=== PATIENT | female | born 1970 | race Two or more races ===

== ENCOUNTER 2021-08-14 14:35 | Emergency (ER) | payer OTHER ==
[~2021-08-14] VITALS: Ht 165.1 cm; Wt 127.0 kg
[2021-08-14] MEDS ORDERED: DEXTROSE (50%) 50ML SYRG IV PRN (14:45)
[2021-08-14] MEDS ORDERED: InsuLIN R (HUMAN) 100 UNITS in SODIUM CHL 0.9% 99 ML IV SCH (14:45)
[2021-08-14] MEDS ORDERED: INSULIN LANTUS (GLARGINE) 1 /0.01ml (100units/ml) SC ONE (14:45)
[2021-08-14] MEDS ORDERED: SODIUM CHLORIDE 0.9% 1,000 ML IV SCH ×3 (14:45→20:45)
[2021-08-14 14:53] VITALS: BP 122/81
[2021-08-14] MEDS ORDERED: ACCU-CHEK COMFORT CURVE STRIP VI SCH (15:00)
[2021-08-14 15:10] LABS: Basophils # (auto) 0.1 10 ^3/uL (0-0.2); Basophils % (auto) 1.2 % (0.0-2.0); Eosinophils # (auto) 0 10 ^3/uL (0-0.8); Eosinophils % (auto) 0.6 % (0.0-7.0); Hematocrit 42.5 % (36.0-46.0); Hemoglobin 13.5 g/dL (12.2-16.2); Lymphocytes # (auto) 1.7 10 ^3/uL (0.4-5.4); Lymphocytes % (auto) 33.5 % (10.0-50.0); Mean Corpuscular Hemoglobin 25.9 pg (28.0-32.0); Mean Corpuscular Hgb Conc. 31.9 g/dL (32.0-36.0); Mean Corpuscular Volume 81.2 fL (80.0-100.0); Monocytes # (auto) 0.4 10 ^3/uL (0-1.3); Monocytes % (auto) 8.4 % (0.0-12.0); Neutrophils # (auto) 2.9 10 ^3/uL (1.6-8.6); Neutrophils % (auto) 56.3 % (37.0-80.0); Red Blood Cells 5.23 10^6/uL (4.0-5.20); Red Cell Distribution Width 13.4 % (11.8-14.3); White Blood Cell 5.2 10^3/uL (4.4-10.8)
[2021-08-14 15:31] LABS: Calcium 9.5 mg/dL (8.5-10.1); Magnesium 2.8 mg/dL (1.6-2.6); Potassium 5.3 mmol/L (3.5-5.1)
[2021-08-14 15:40] LABS: Phosphorus 4.1 mg/dL (2.5-4.90)
[2021-08-14] MEDS ORDERED: SODIUM ZIRCONIUM CYCL 10 GM PAK PO ONE (16:45)
[2021-08-14] MEDS ORDERED: FUROSEMIDE 20 MG/2 ML VIAL IV ONE (16:45)
[2021-08-14] MEDS ORDERED: CALCIUM GLUC 1,000mg/50ml-NS 50 ML IV ONE (16:45)
[2021-08-14] MEDS ORDERED: SODIUM BICARBONATE 8.4% INJ 50ML SYRINGE IV ONE (16:45)
[2021-08-14] MEDS ORDERED: InsuLIN REG 1unit/0.01ml Soln (100units/ml) IV ONE (16:45)
[2021-08-14] MEDS ORDERED: ALBUTEROL SULF 2.5 MG/0.5ML(0.5%) NEB SOLN NEB ONE (16:45)
[2021-08-14 17:43] LABS: Urine Bacteria FEW /hpf (None Seen); Urine Blood 2+ /uL (Negative); Urine Specific Gravity 1.019 (1.001-1.035); Urine WBC 4 /hpf (0 - 5)
[2021-08-15] MEDS ORDERED: INSULIN LANTUS (GLARGINE) 1 /0.01ml (100units/ml) SC SCH (10:00)
== END 2021-08-14 19:30 | disposition left against medical advice (07) ==
LOC: EDBD 14:35 → ER 14:35
DX: E11.65 Type 2 diabetes mellitus with hyperglycemia (principal)
CPT/HCPCS: 36415; 36600; 80048; 81001; 82010; 82805; 83735; 83930; 84100; 85025; 93005; 94640; 99284; J1815

== ENCOUNTER 2023-10-04 07:58 | Emergency (ER) | payer SELFPAY ==
[~2023-10-04] VITALS: Ht 167.6 cm; Wt 113.3 kg
[2023-10-04 09:00] VITALS: PULSE 108; RESP 22; O2SAT 99
[2023-10-04] MEDS ORDERED: HYDROcodone-ACET 5/325MG TAB PO ONE (09:15)
[2023-10-04] MEDS ORDERED: ALBUTEROL MEDNEB 2.5 mg/3ml NEB NEB ONE (09:30)
[2023-10-04] MEDS ORDERED: methylPREDNISolone SOD SUCC 125 MG/2 ML VL IV ONE (09:30)
[2023-10-04] MEDS ORDERED: MORPHINE SULFATE INJ 2 MG/ml SYRG IV ONE (09:30)
[2023-10-04] MEDS ORDERED: ONDANSETRON HCL 4 MG/2 ML VIAL IV ONE (09:30)
[2023-10-04] MEDS ORDERED: IPRATROPIUM BROM 0.5 MG/2.5ML INH SOL NEB ONE (09:30)
[2023-10-04 09:34] LABS: Basophils # (auto) 0 10 ^3/uL (0-0.2); Basophils % (auto) 0.6 % (0.0-2.0); Eosinophils # (auto) 0.1 10 ^3/uL (0-0.8); Eosinophils % (auto) 1.9 % (0.0-7.0); Hematocrit 34.1 % (36.0-46.0); Hemoglobin 10.9 g/dL (12.2-16.2); Lymphocytes # (auto) 0.7 10 ^3/uL (0.4-5.4); Lymphocytes % (auto) 11.3 % (10.0-50.0); Mean Corpuscular Hemoglobin 25.8 pg (28.0-32.0); Mean Corpuscular Hgb Conc. 32.1 g/dL (32.0-36.0); Mean Corpuscular Volume 80.4 fL (80.0-100.0); Monocytes # (auto) 0.7 10 ^3/uL (0-1.3); Monocytes % (auto) 11.8 % (0.0-12.0); Neutrophils # (auto) 4.6 10 ^3/uL (1.6-8.6); Neutrophils % (auto) 74.4 % (37.0-80.0); Nucleated Red Blood Cells % 0.1 %; Red Blood Cells 4.24 10^6/uL (4.0-5.20); Red Cell Distribution Width 13.5 % (11.8-14.3); White Blood Cell 6.2 10^3/uL (4.4-10.8)
[2023-10-04] MEDS ORDERED: AZITHROMYCIN 500MG/ 250ML 250 ML IV ONE (10:15)
[2023-10-04] MEDS ORDERED: cefTRIAXone 1GM/50ML D5W 50 ML IV ONE (10:15)
[2023-10-04 10:43] LABS: Alanine Aminotransferase 43 U/L (7-40); Albumin 3.8 g/dL (3.2-4.8); Alkaline Phosphatase 188 U/L (46-116); Anion Gap 8 (5-15); Aspartate Aminotransferase 53 U/L (13-40); BUN/Creatinine Ratio 13.8 (10.0-20.0); Bilirubin, Total 0.4 mg/dL (0.2-1.0); Blood Urea Nitrogen 27 mg/dL (9-23); Calcium 8.9 mg/dL (8.5-10.1); Carbon Dioxide 27 mmol/L (20-30); Chloride 104 mmol/L (98-107); Glucose 87 mg/dL (74-106); Potassium 4.4 mmol/L (3.5-5.1); Sodium 139 mmol/L (136-145); Total Protein 6.6 g/dL (5.7-8.2)
[2023-10-04 10:46] LABS: Urine Bacteria FEW /hpf (None Seen); Urine Blood 2+ /uL (Negative); Urine Clarity HAZY (Clear); Urine Color Colorless (Yellow); Urine Protein, UAD 3+ (Negative); Urine Specific Gravity 1.014 (1.001-1.035); Urine Urobilinogen Normal (Negative); Urine WBC 15 /hpf (0 - 5); Urine pH 6.5 (5.0-8.0)
[2023-10-04] MEDS ORDERED: VANCOMYCIN PER PHARMACY 0 MG IV SCH (13:00)
[2023-10-04] MEDS ORDERED: DOCUSATE SOD 100 MG CAP PO PRN (13:00)
[2023-10-04] MEDS ORDERED: ONDANSETRON HCL 4 MG/2 ML VIAL IV PRN (13:00)
[2023-10-04] MEDS ORDERED: MORPHINE SULFATE INJ 2 MG/ml SYRG IV PRN (13:00)
[2023-10-04] MEDS ORDERED: ACETAMINOPHEN 650 mg PER 20.3 mL UD PO PRN (13:30)
[2023-10-04] MEDS ORDERED: DEXTROSE (50%) 50ML SYRG IV PRN (13:30)
[2023-10-04 14:00] VITALS: BP 113/76; PULSE 90; RESP 13; TEMP 100.8; O2SAT 92
[2023-10-04] MEDS ORDERED: CEFEPIME 2GM/50ML NS 50 ML IV SCH (14:00)
[2023-10-04 14:11] LABS: INR 1.05 (0.9-1.15)
[2023-10-04 14:42] LABS: Base Excess 0.2 mmol/L (-2.0-2.0)
[2023-10-04] MEDS: VANCOMYCIN 1GM/250ML 250 ML IV SCH (16:20)
[2023-10-04] MEDS: ACCU-CHEK COMFORT CURVE STRIP VI SCH ×2 (17:20→22:00)
[2023-10-04] MEDS: InsuLIN REG 1unit/0.01ml Soln (100units/ml) SC SCH ×2 (17:25→22:00)
[2023-10-04] MEDS: FUROSEMIDE 20 MG/2 ML VIAL IV SCH (18:11)
[2023-10-04 18:51] LABS: COVID19 ANTIGEN SOFIA FIA NEGATIVE (NEGATIVE)
[2023-10-04 18:53] LABS: Rapid Influenza B Negative (Negative)
[2023-10-04 18:54] LABS: Rapid Influenza A Positive (Negative)
[2023-10-04 19:44] LABS: Creatinine, Urine 74.01 mg/dL (30.0-125.0)
[2023-10-04 19:45] VITALS: PULSE 83; RESP 22; O2SAT 98
[2023-10-04 19:46] VITALS: PULSE 88; RESP 20; O2SAT 100; O2SAT 99
[2023-10-04] MEDS: IPRATROPIUM BROM 0.5 MG/2.5ML INH SOL NEB PRN (19:55)
[2023-10-04] MEDS: ALBUTEROL MEDNEB 2.5 mg/3ml NEB NEB PRN (19:55)
[2023-10-04 19:56] VITALS: PULSE 82; RESP 21; O2SAT 99
[2023-10-04 20:43] LABS: Triglycerides 126 mg/dL (< 150)
[2023-10-04 20:44] LABS: LDL Cholesterol 155 mg/dL (< 100)
[2023-10-04 20:45] LABS: Cholesterol 217 mg/dL (< 200); HDL Cholesterol 47 mg/dL (40-59)
[2023-10-04] MEDS: APIXABAN 5 MG TAB PO SCH (22:00)
[2023-10-04] MEDS: ATORVASTATIN 20 MG TAB PO SCH (22:00)
[2023-10-04] MEDS ORDERED: OSELTAMIVIR 75 MG CAP PO ONE (22:00)
[2023-10-04] MEDS: CEFEPIME 2GM/50ML NS 50 ML IV SCH (22:00)
[2023-10-04] MEDS: METOPROLOL TARTRATE 25 MG TAB PO SCH (22:00)
[2023-10-04] MEDS ORDERED: APIXABAN 5 MG TAB PO ONE (23:45)
[2023-10-04] MEDS ORDERED: METOPROLOL TARTRATE 25 MG TAB PO ONE (23:45)
[2023-10-04] MEDS ORDERED: ATORVASTATIN 20 MG TAB PO ONE (23:45)
[2023-10-04] MEDS ORDERED: InsuLIN REG 1unit/0.01ml Soln (100units/ml) SC ONE (23:45)
[2023-10-04] MEDS ORDERED: CEFEPIME 2GM/50ML NS 50 ML IV ONE (23:45)
[2023-10-05] VITALS (7 sets, daily range): PULSE 70–81; RESP 13–17; O2SAT 92–99
[2023-10-05] MEDS ORDERED: IPRATROPIUM BROM 0.5 MG/2.5ML INH SOL ONE
[2023-10-05] MEDS ORDERED: ALBUTEROL MEDNEB 2.5 mg/3ml NEB ONE
[2023-10-05] MEDS: IPRATROPIUM BROM 0.5 MG/2.5ML INH SOL NEB PRN (00:06)
[2023-10-05] MEDS: ALBUTEROL MEDNEB 2.5 mg/3ml NEB NEB PRN (00:06)
[2023-10-05] MEDS: VANCOMYCIN 1GM/250ML 250 ML IV SCH ×2 (03:00→15:43)
[2023-10-05 04:57] LABS: Basophils # (auto) 0 10 ^3/uL (0-0.2); Basophils % (auto) 0.2 % (0.0-2.0); Eosinophils # (auto) 0 10 ^3/uL (0-0.8)
[2023-10-05 04:59] LABS: Hematocrit 32.4 % (36.0-46.0); Lymphocytes % (auto) 15.4 % (10.0-50.0); Mean Corpuscular Hemoglobin 25.6 pg (28.0-32.0); Mean Corpuscular Volume 82.7 fL (80.0-100.0); Monocytes # (auto) 0.7 10 ^3/uL (0-1.3); Monocytes % (auto) 11.8 % (0.0-12.0); Neutrophils # (auto) 4.5 10 ^3/uL (1.6-8.6); Neutrophils % (auto) 72.6 % (37.0-80.0); Nucleated Red Blood Cells % 0.2 %; Red Blood Cells 3.91 10^6/uL (4.0-5.20); Red Cell Distribution Width 13.8 % (11.8-14.3); White Blood Cell 6.2 10^3/uL (4.4-10.8)
[2023-10-05 06:26] LABS: Alanine Aminotransferase 30 U/L (7-40); Albumin 3.6 g/dL (3.2-4.8); Alkaline Phosphatase 164 U/L (46-116); Anion Gap 8 (5-15); Aspartate Aminotransferase 47 U/L (13-40); BUN/Creatinine Ratio 9.4 (10.0-20.0); Bilirubin, Total 0.3 mg/dL (0.2-1.0); Blood Urea Nitrogen 25 mg/dL (9-23); Calcium 8.5 mg/dL (8.7-10.4); Carbon Dioxide 22 mmol/L (20-30); Chloride 101 mmol/L (98-107); Glucose 339 mg/dL (74-106); Potassium 5.2 mmol/L (3.5-5.1); Total Protein 6.7 g/dL (5.7-8.2)
[2023-10-05 06:39] LABS: Sodium 131 mmol/L (136-145)
[2023-10-05] MEDS: CEFEPIME 2GM/50ML NS 50 ML IV SCH ×2 (10:29→23:13)
[2023-10-05] MEDS: CLOPIDOGREL BISULFATE 75 MG TAB PO SCH (10:29)
[2023-10-05] MEDS: APIXABAN 5 MG TAB PO SCH ×2 (10:29→23:11)
[2023-10-05] MEDS: InsuLIN REG 1unit/0.01ml Soln (100units/ml) SC SCH ×4 (10:29→23:10)
[2023-10-05] MEDS: METOPROLOL TARTRATE 25 MG TAB PO SCH ×2 (10:29→23:13)
[2023-10-05] MEDS: ACCU-CHEK COMFORT CURVE STRIP VI SCH ×4 (10:30→23:14)
[2023-10-05] MEDS: FUROSEMIDE 20 MG/2 ML VIAL IV SCH ×2 (10:30→18:11)
[2023-10-05] MEDS: OSELTAMIVIR 30 MG CAP PO SCH ×2 (10:31→23:29)
[2023-10-05] MEDS: ATORVASTATIN 20 MG TAB PO SCH (23:11)
[2023-10-06] MEDS ORDERED: ZOLPIDEM TARTRATE 5 MG TAB PO ONE (01:15)
[2023-10-06] MEDS: VANCOMYCIN 1GM/250ML 250 ML IV SCH (04:50)
[2023-10-06] MEDS: ACCU-CHEK COMFORT CURVE STRIP VI SCH ×2 (06:58→11:38)
[2023-10-06] MEDS: InsuLIN REG 1unit/0.01ml Soln (100units/ml) SC SCH ×2 (07:03→11:41)
[2023-10-06 07:50] VITALS: O2SAT 100
[2023-10-06 07:52] VITALS: PULSE 77; RESP 20; O2SAT 94
[2023-10-06] MEDS: FUROSEMIDE 20 MG/2 ML VIAL IV SCH (08:27)
[2023-10-06 08:52] LABS: Basophils # (auto) 0 10 ^3/uL (0-0.2); Basophils % (auto) 0.8 % (0.0-2.0); Eosinophils # (auto) 0 10 ^3/uL (0-0.8); Monocytes # (auto) 0.7 10 ^3/uL (0-1.3); Neutrophils # (auto) 3.9 10 ^3/uL (1.6-8.6); Nucleated Red Blood Cells % 0.2 %; Red Cell Distribution Width 13.2 % (11.8-14.3); White Blood Cell 5.8 10^3/uL (4.4-10.8)
[2023-10-06 08:54] LABS: Eosinophils % (auto) 0.5 % (0.0-7.0); Hematocrit 34.4 % (36.0-46.0); Hemoglobin 11.1 g/dL (12.2-16.2); Lymphocytes # (auto) 1.1 10 ^3/uL (0.4-5.4); Lymphocytes % (auto) 19.8 % (10.0-50.0); Mean Corpuscular Hemoglobin 25.8 pg (28.0-32.0); Mean Corpuscular Hgb Conc. 32.3 g/dL (32.0-36.0); Monocytes % (auto) 11.6 % (0.0-12.0); Neutrophils % (auto) 67.3 % (37.0-80.0)
[2023-10-06 09:13] LABS: Alanine Aminotransferase 48 U/L (7-40); Alkaline Phosphatase 150 U/L (46-116); Calcium 9.1 mg/dL (8.5-10.1); Carbon Dioxide 30 mmol/L (20-30); Chloride 101 mmol/L (98-107)
[2023-10-06 09:14] LABS: Albumin 3.9 g/dL (3.2-4.8); Anion Gap 5 (5-15); Aspartate Aminotransferase 65 U/L (13-40); BUN/Creatinine Ratio 15.3 (10.0-20.0); Bilirubin, Total 0.3 mg/dL (0.2-1.0); Glucose 125 mg/dL (74-106); Potassium 4.5 mmol/L (3.5-5.1); Sodium 136 mmol/L (136-145)
[2023-10-06 09:28] LABS: Blood Urea Nitrogen 37 mg/dL (9-23)
[2023-10-06] MEDS: CEFEPIME 2GM/50ML NS 50 ML IV SCH (09:56)
[2023-10-06] MEDS: CLOPIDOGREL BISULFATE 75 MG TAB PO SCH (09:56)
[2023-10-06] MEDS: OSELTAMIVIR 30 MG CAP PO SCH (09:56)
[2023-10-06] MEDS ORDERED: APIXABAN 5 MG TAB PO SCH (10:00)
[2023-10-06] MEDS: METOPROLOL TARTRATE 25 MG TAB PO SCH (10:06)
[2023-10-06 14:22] VITALS: BP 166/88; PULSE 77; RESP 20; TEMP 98.3; O2SAT 97
[2023-10-07] MEDS ORDERED: EMPAGLIFLOZIN 10 MG TAB PO SCH (07:00)
[2023-10-07] MEDS ORDERED: ENOXAPARIN SOD 100 MG/1 ML SYRINGE SC SCH (10:00)
[2023-10-07] MEDS ORDERED: ASPirin 81 mg TAB PO SCH (10:00)
== END 2023-10-06 13:26 | disposition short-term general hospital (02) ==
LOC: ER 07:58 → EDBD 07:58 → EDUNIT# 07:58 → UNDOADMIN 13:26 → TELE 13:26 → ER 10-06 13:26
DX: J18.9 Pneumonia, unspecified organism (principal); R05.9 Cough, unspecified; E11.9 Type 2 diabetes mellitus without complications; Z20.822 Contact with and (suspected) exposure to COVID-19
CPT/HCPCS: 36415; 36600; 71045; 80053; 80061; 80202; 81001; 82570; 82805; 83036; 83605; 83880; 84300; 84443; 84484; 85025; 85379; 85610; 87040; 87086; 87426; 87804; 93005; 93306; 94640; 96365; 96367; 96372; 96375; 99291; J0456; J0692; J0696; J1815; J1940; J2270; J2405; J2930; J3370; J7644; G9035

== ENCOUNTER 2025-07-12 16:35 | Emergency (ER) | payer MEDICAID ==
[~2025-07-12] VITALS: Ht 165.1 cm; Wt 125.0 kg
--- NOTE | 2025-07-12 16:58 | ED.PDOC ---
History of Present Illness HPI Comments This is a 55-year-old female with past medical history of CVA, status post CABG, CAD, type 2 diabetes mellitus presented to the ED by EMS with a complaint of generalized weakness, dizziness ,nausea and unsteady gait since 4:00 a.m. prior to this visit. She also complaint of bilateral leg swelling, shortness of breath especially during walking and intermittent use of oxygen during nighttime for last few weeks. She denies fever, chills, abdominal pain, vomiting, dysuria, hematuria, positive sick contact, recent traveling or any altered bowel habit. 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 CONDITIONING TECHNICIAN History: No Pertinent AIR CONDITIONING TECHNICIAN History Family History Family History: Reviewed,noncontributory to illness Social History Smoker: Non-Smoker Alcohol: Denies ETOH Use Drugs: Denies Drug Use Lives In: Home Constitutional: reports: fatigue, malaise, weakness; denies: chills, diaphoresis, fever, sweats, others EENTM: reports: blurred vision; denies: double vision, ear bleeding, ear discharge, ear drainage, ear pain, ear ringing, eye pain, eye redness, hearing loss, mouth pain, mouth swelling, nasal discharge, nose bleeding, nose congestion, nose pain, photophobia, tearing, throat pain, throat swelling, voice changes, others Respiratory: reports: shortness of breath, SOB with excertion; denies: cough, hemoptysis, orthopnea, SOB at rest, stridor, wheezing, others Cardiovascular: reports: dizzy spells; denies: chest pain, diaphoresis, Dyspnea on exertion, edema, irregular heart beat, left arm pain, lightheadedness, palpitations, PND, syncope, others Gastrointestinal: reports: nausea; denies: abdomen distended, abdominal pain, blood streaked bowels, constipated, diarrhea, dysphagia, difficulty swallowing, hematemesis, melena, poor appetite, poor fluid intake, rectal bleeding, rectal pain, vomiting, others Genitourinary: denies: abnormal vagina bleeding, burning, dyspareunia, dysuria, flank pain, frequency, hematuria, incontinence, pain, , vagina discharge, urgency, others Neurological: reports: dizziness; denies: fainting, headache, left sided numbness, left sided weakness, numbness, paresthesia, pre-existing deficit, right sided numbness, right sided weakness, seizure, speech problems, tingling, tremors, weakness, others Musculoskeletal: denies: back pain, gout, joint pain, joint swelling, muscle pain, muscle stiffness, neck pain, others Integumetry: denies: bruises, change in color, change in hair/nails, dryness, laceration, lesions, lumps, rash, wounds, others Allergic/Immunocompromised: denies: Difficulty Healing, Frequent Infections, Hives, Itching, others Hematologic/Lymphatic: denies: anemia, blood clots, easy bleeding, easy bruising, swollen glands, others Endocrine: denies: excessive hunger, excessive sweating, excessive thirst, excessive urination, flushing, intolerance to cold, intolerance to heat, unexplained weight gain, unexplained weight loss, others Psychiatric: denies: anxiety, bipolar disorder, depression, hopeless, panic disorder, schizophrenia, sleepless, suicidal, others Physical Exam General Appearance: Mild Distress HEENT: Normal ENT Inspection, Pharynx Normal, TMs Normal Neck: Full Range of Motion, Non-Tender, Normal, Normal Inspection Respiratory: Chest Non-Tender, Lungs Clear, No Accessory Muscle Use, No Respiratory Distress, Normal Breath Sounds Cardiovascular: No Edema, No JVD, No Murmur, No Gallop, Normal Peripheral Pulses, Regular Rate/Rhythm Breast Exam: Deferred Gastrointestinal: No Organomegaly, Non Tender, No Pulsatile Mass, Normal Bowel Sounds, Soft Genitalia: Deferred Pelvic: Deferred Rectal: Deferred Extremities: Calf tenderness, Leg edema, Normal capillary refill, Pedal edema Neurologic: ethylbenzene converter helper II-XII nml as Tested, No Motor Deficits, No Sensory Deficits, Other (Use walker) Cerebellar Function: Normal Reflexes: NOT DONE Skin: NOT DONE Peripheral Pulses: 2+ carotid (R), 2+ carotid (L), 2+ femoral (R), 2+ femoral (L), 2+ dorsalis pedis (R), 2+ dorsalis pedis (L), 2+ Radial (R), 2+ Radial (L), 2+ Brachial (R), 2+ Brachial (L) Lymphatic: NOT DONE Was a procedure done? Was a procedure done?: No Differential Dx Considerations may include: TIA, stroke, labyrinthitis, BPPV, exacerbation of CHF, DVT, UTI X-Ray, Labs, Meds, VS Vital Signs Date Time Temp Pulse Resp B/P (MAP) Pulse Ox O2 Delivery O2 Flow Rate FiO2 07/12/25 21:39 97.4 75 18 159/85 (109) 96 97.4 07/12/25 20:00 73 07/12/25 19:30 69 13 97 Room Air* 0 21 07/12/25 19:30 97.4 69 13 145/83 (103) 97 97.4 07/12/25 18:00 98.3 70 17 145/78 (100) 95 98.3 07/12/25 16:57 98.3 80 18 154/99 (117) 99 98.3 07/12/25 16:57 Room Air* 0 21 07/12/25 16:39 98.1 79 20 172/93 95 98.1 07/12/25 16:37 79 Lab Test 07/12/25 20:51 07/12/25 17:09 Range/Units Urine Color Colorless Yellow Urine Clarity Turbid H Clear Urine pH 6.0 5.0-9.0 Urine Specific [place]ke 1.011 1.001-1.035 Urine Protein 2+ H Negative Urine Ketones Negative Negative Urine Blood 1+ H Negative /uL Urine Nitrite Negative Negative Urine Bilirubin Negative Negative Urine Urobilinogen Normal Negative mg/dL Urine Leukocyte Esterase 1+ Negative /uL Urine RBC 1 0 - 4 /hpf Urine Microscopic WBC 78 H 0-5 /HPF Urine Squamous Epithelial Cells Few <5 /hpf Urine Bacteria Few H None Seen /hpf Urine Glucose 4+ H Normal mg/dL Urine Opiates Screen Pending Urine Fentanyl Screen Pending Urine Barbiturates Screen Pending Urine Phencyclidine Screen Pending Urine Amphetamines Screen Pending Urine Benzodiazepines Screen Pending Urine Cocaine Screen Pending Urine Cannabinoids Screen Pending White Blood Count 6.9 4.4-10.8 10^3/uL Red Blood Count 5.00 4.0-5.20 10^6/uL Hemoglobin 12.9 12.2-16.2 g/dL Hematocrit 39.1 36.0-46.0 % Mean Corpuscular Volume 78.2 L 80.0-100.0 fL Mean Corpuscular Hemoglobin 25.8 L 28.0-32.0 pg Mean Corpuscular Hemoglobin Concent 33.0 32.0-36.0 g/dL Red Cell Distribution Width 13.5 11.8-14.3 % Platelet Count 179 140-450 10^3/uL Mean Platelet Volume 8.6 6.9-10.8 fL Neutrophils (%) (Auto) 59.5 37.0-80.0 % Lymphocytes (%) (Auto) 29.6 10.0-50.0 % Monocytes (%) (Auto) 8.8 0.0-12.0 % Eosinophils (%) (Auto) 1.4 0.0-7.0 % Basophils (%) (Auto) 0.7 0.0-2.0 % Neutrophils # (Auto) 4.1 1.6-8.6 10 ^3/uL Lymphocytes # (Auto) 2.0 0.4-5.4 10 ^3/uL Monocytes # (Auto) 0.6 0-1.3 10 ^3/uL Eosinophils # (Auto) 0.1 0-0.8 10 ^3/uL Basophils # (Auto) 0.1 0-0.2 10 ^3/uL Nucleated Red Blood Cells 0.0 % Sodium Level 139 136-145 mmol/L Potassium Level 3.6 3.5-5.1 mmol/L Chloride Level 102 98-107 mmol/L Carbon Dioxide Level 26 20-31 mmol/L Anion Gap 11 5-15 Blood Urea Nitrogen 42 H 9-23 mg/dL Creatinine 3.08 H 0.550-1.02 mg/dL Glomerular Filtration Rate Calc 17 >90 mL/min BUN/Creatinine Ratio 13.6 10.0-20.0 Serum Glucose 69 L 74-106 mg/dL Hemoglobin A1c Pending Lactic Acid Level 1.5 0.4-2.0 mmol/L Calcium Level 9.0 8.7-10.4 mg/dL Total Bilirubin 0.3 0.2-1.0 mg/dL Aspartate Amino Transferase (AST) 24 13-40 U/L Alanine Aminotransferase (ALT) 19 7-40 U/L Alkaline Phosphatase 97 46-116 U/L Troponin I High Sensitivity 16 </=34 ng/L B-Type Natriuretic Peptide 50.65 0-100 pg/mL Total Protein 6.2 5.7-8.2 g/dL Albumin 3.5 3.2-4.8 g/dL Current Medications Medications (Trade) Dose Ordered Sig/Roscoe Route Start Time Stop Time Status Last Admin Aspirin 81 mg ONCE ONCE PO 07/12/25 19:00 07/12/25 19:53 DC 07/12/25 20:47 X-Ray, Labs, Meds, VS Comment CT HEAD WITHOUT CONTRAST Indication: Dizziness EXAM DATE: 07/12/2025 05:45 PM COMPARISON: None TECHNIQUE: CT of the head without intravenous contrast. RADIATION DOSE: CTDIvol: 68 mGy, DLP: 1334 mGy*cm FINDINGS: There is no intracranial hemorrhage. There is no extra-axial fluid, mass, mass effect or midline shift. The ventricles are midline and normal in size. Basilar cisterns are patent. Region of hypoattenuation within the right frontal cooney radiata/centrum semiovale. Old right basal ganglia / cooney radiata infarct. Ywod-fq-xysmteyp periventricular and subcortical white matter chronic microvascular ischemic changes. Old left cerebellar infarct. Old left pontine infarct. Mastoids well pneumatized. Mucosal thickening of the bilateral maxillary sinuses. Right frontal suzette hole.. Imaged portion of the orbits are unremarkable. IMPRESSION: No intracranial hemorrhage or mass effect. Possible acute/ subacute infarct within the right frontal cooney radiata / centrum semiovale. Recommend MRI brain to evaluate. Multiple old infarcts as described. Fmha-ba-obolaloe chronic microvascular ischemic changes. Technique: Real-time ultrasound imaging, with color Doppler and compression of the bilateral common femoral vein, femoral vein, greater saphenous vein, and popliteal vein. Indication: To rule out DVT Comparison: None Findings: There is normal compressibility and flow augmentation in all of the imaged deep veins. There are no filling defects. Bilateral lower extremity soft tissue edema. Impression: No evidence of DVT in the bilateral lower extremities Time of 1ST Reevaluation: 17:47 Reevaluation 1ST: Unchanged Patient Education/Counseling: Diagnosis, Treatment Family Education/Counseling: No Family Present Comments This is a 55-year-old female presented to the ER via EMS with a complaint of generalized weakness, dizziness, nausea and unsteady gait since 4:00 a.m. this morning Initial physical examination demonstrated weakness in all extremities but no definite motor weakness, sensory deficit, facial asymmetry or cranial nerve deformity BMP demonstrated elevated BUN and creatinine CT head without contrast showed Possible acute/ subacute infarct within the right frontal cooney radiata / centrum semiovale.Multiple old infarcts as described. Lima-mn-llawknyz chronic microvascular ischemic changes. Patient was given aspirin 81 mg once and consulted Neurology for further evaluation and management Patient will be admitted for further evaluation and management of possible ischemic stroke SEPSIS Sepsis Screen Date sepsis recognized/suspect: Jul 12, 2025 Time Sepsis recognized/suspect: 1629 Recent Procedure: No On Antibiotic Therapy: No Respiratory Rate >20: No Heart Rate >90: No Temp<36 C (96.8 F) or >38.3 C: No SBP <90 or MAP <65 mmHG: No New Acute Mental Status Change: No Is the patient on CPAP, BIPAP,: No Physician Orders Head Without Contrast (07/12/25 16:55) Chest Portable (07/12/25 16:55) Bilat Lower Dvt (07/12/25 16:55) * Neurology Consult (07/12/25 20:09) Admit (07/12/25 21:22) Code Status (07/12/25 21:22) Vital Signs .PER UNIT PROTOCOL (07/12/25 21:22) Review Orders With Adm.Md (07/12/25 21:22) Bedside Commode (07/12/25 21:22) Notify Md Of Changes From Base (07/12/25 21:22) Advance Directive (07/12/25 21:22) Basic Metabolic Panel (07/13/25 04:00) Complete Blood Count (07/13/25 04:00) Patient Condition (07/12/25 21:22) Allergies (07/12/25 21:22) Hydrocodone-Acet 5/325mg Tab ([place] 5/32 (07/12/25 21:30) Drug Screen (07/12/25 21:22) Morphine Sulfate Injection (07/12/25 21:30) Enoxaparin Sodium (Lovenox) (07/13/25 10:00) Clerk Travel Reservations For 24 Hours (07/12/25 21:22) Rhythm Strips Once Every Shift (07/12/25 21:22) Pantoprazole (Protonix) (07/13/25 10:00) Hemoglobin A1c (07/12/25 21:22) Clopidogrel Bisulfate (Plavix) (07/13/25 10:00) Atorvastatin (Lipitor) (07/12/25 21:45) Sodium Chloride 0.9% (07/12/25 21:45) Sodium Chloride 0.9% (07/12/25 23:00) Clopidogrel Bisulfate (Plavix) (07/12/25 21:45) Apixaban (Eliquis) (07/13/25 10:00) Troponin-I Hs (07/12/25 21:54) Vital Signs Date Time Temp Pulse Resp B/P (MAP) Pulse Ox O2 Delivery O2 Flow Rate FiO2 07/12/25 21:39 97.4 75 18 159/85 (109) 96 97.4 07/12/25 20:00 73 07/12/25 19:30 69 13 97 Room Air* 0 21 07/12/25 19:30 97.4 69 13 145/83 (103) 97 97.4 07/12/25 18:00 98.3 70 17 145/78 (100) 95 98.3 07/12/25 16:57 98.3 80 18 154/99 (117) 99 98.3 07/12/25 16:57 Room Air* 0 21 07/12/25 16:39 98.1 79 20 172/93 95 98.1 07/12/25 16:37 79 Laboratory Tests Test 07/12/25 17:09 Lactic Acid Level 1.5 mmol/L (0.4-2.0) White Blood Count 6.9 10^3/uL (4.4-10.8) Medications Medications Dose Ordered Sig/Roscoe Route Start Time Stop Time Status Last Admin Dose Admin Aspirin 81 mg ONCE ONCE PO 07/12/25 19:00 07/12/25 19:53 DC 07/12/25 20:47 Departure 1 Departure Time of Disposition: 19:00 Impression: Primary Impression: Acute ischemic stroke Additional Impression: Acute kidney injury superimposed on CKD Disposition: 09 ADMITTED INPATIENT Admit to: Tele Condition: Guarded Comments I discussed the case with Alec JOSE RP and they want to try and transfer the patient to their facility for further workup and MRI. Authorization #[id number] Critical Care Note Critical Care Time?: No Stability Stability form required: No Heart Score Heart Score: Heart Score Response (Comments) Value History Slightly Suspicious 0 EKG Repolarization Disturb 1 Age 45-64 1 Risk Factors 1 or 2 risk factors 1 Troponin Normal limit 0 Total 3 NEVA GROSS RESIDENT Jul 12, 2025 16:58 RADHA GOOD MD Jul 12, 2025 21:56
--- NOTE | 2025-07-12 17:27 | DVH ---
Technique: Real-time ultrasound imaging, with color Doppler and compression of the bilateral common femoral vein, femoral vein, greater saphenous vein, and popliteal vein. Indication: To rule out DVT Comparison: None Findings: There is normal compressibility and flow augmentation in all of the imaged deep veins. There are no f illing defects. Bilateral lower extremity soft tissue edema. Impression: No evidence of DVT in the bilateral lower extremities
[2025-07-12 17:36] LABS: Hematocrit 39.1 % (36.0-46.0); Hemoglobin 12.9 g/dL (12.2-16.2); Mean Corpuscular Hemoglobin 25.8 pg (28.0-32.0); Mean Corpuscular Volume 78.2 fL (80.0-100.0); Nucleated Red Blood Cells % 0.0 %
[2025-07-12 17:47] LABS: Alanine Aminotransferase 19 U/L (7-40); Alkaline Phosphatase 97 U/L (46-116); Anion Gap 11 (5-15); BUN/Creatinine Ratio 13.6 (10.0-20.0); Calcium 9.0 mg/dL (8.7-10.4); Carbon Dioxide 26 mmol/L (20-31); Chloride 102 mmol/L (98-107); Potassium 3.6 mmol/L (3.5-5.1); Sodium 139 mmol/L (136-145); Total Protein 6.2 g/dL (5.7-8.2)
--- NOTE | 2025-07-12 17:47 | DVH ---
CHEST RADIOGRAPH Indication: chf Technique: Single frontal view of the chest was obtained Comparison: XY CHEST PORTABLE on DOS: 10/04/23 FINDINGS: Lines and Tubes: Sternal wire sutures in place Lungs: No focal consolidation. Pleura: No effusion. No pneumothorax. Cardiomediastinal contours: Cardiac size stable Bones: No acute osseous abnormality. IMPRESSION: 1. Stable cardiac size. 2. No findings of pulmonary vascular congestion.
[2025-07-12 17:48] LABS: Albumin 3.5 g/dL (3.2-4.8); Bilirubin, Total 0.3 mg/dL (0.2-1.0)
[2025-07-12 17:51] LABS: Blood Urea Nitrogen 42 mg/dL (9-23); Glucose 69 mg/dL (74-106)
--- NOTE | 2025-07-12 18:21 | DVH ---
CT HEAD WITHOUT CONTRAST Indication: Dizziness EXAM DATE: 07/12/2025 05:45 PM COMPARISON: None TECHNIQUE: CT of the head without intravenous contrast. RADIATION DOSE: CTDIvol: 68 mGy, DLP: 1334 mGy*cm FINDINGS: There is no intracranial hemorrhage. There is no extra-axial fluid, mass, mass effect or midline shif t. The ventricles are midline and normal in size. Basilar cisterns are patent. Region of hypoattenuat ion within the right frontal cooney radiata/centrum semiovale. Old right basal ganglia / cooney radia ta infarct. Knuq-sq-jhplbnbb periventricular and subcortical white matter chronic microvascular [place] changes. Old left cerebellar infarct. Old left pontine infarct. Mastoids well pneumatized. Mucosal thickening of the bilateral maxillary sinuses. Right frontal suzette hole.. Imaged portion of the orbits are unremarkable. IMPRESSION: No intracranial hemorrhage or mass effect. Possible acute/ subacute infarct within the right frontal cooney radiata / centrum semiovale. Recomm end MRI brain to evaluate. Multiple old infarcts as described. Peew-gp-byamyyfn chronic microvascular ischemic changes.
--- NOTE | 2025-07-12 18:59 | ECG ---
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
[2025-07-12 19:30] VITALS: PULSE 69; RESP 13; O2SAT 97
[2025-07-12 21:24] LABS: Urine Protein, UAD 2+ (Negative)
[2025-07-12] MEDS ORDERED: MORPHINE SULFATE INJ 2 MG/ml SYRG IV PRN (21:30)
[2025-07-12] MEDS ORDERED: HYDROcodone-ACET 5/325MG TAB PO PRN (21:30)
[2025-07-12] MEDS ORDERED: SODIUM CHLORIDE 0.9% 500 ML IV ONE (21:45)
[2025-07-12] MEDS ORDERED: CLOPIDOGREL BISULFATE 75 MG TAB PO ONE (21:45)
[2025-07-12] MEDS ORDERED: ATORVASTATIN 20 MG TAB PO SCH (21:45)
[2025-07-12 22:35] LABS: Amphetamine Screen, Urine Neg (NEGATIVE); Barbiturate Scree,Urine Neg (NEGATIVE); Opiate Scree,Urine Neg (NEGATIVE); Phencyclidine Screen, Urine Neg (NEGATIVE)
[2025-07-12 22:36] LABS: Benzodiazephine Screen, Urine Neg (NEGATIVE); Cannabinoid Screen, Urine Neg (NEGATIVE); Cocaine Screen, Urine Neg (NEGATIVE)
[2025-07-12] MEDS ORDERED: SODIUM CHLORIDE 0.9% 1,000 ML IV ONE (23:00)
[2025-07-13 00:42] VITALS: BP 179/100; PULSE 76; RESP 14; TEMP 97.7; O2SAT 96
[2025-07-13] MEDS ORDERED: APIXABAN 5 MG TAB PO SCH (10:00)
[2025-07-13] MEDS ORDERED: CLOPIDOGREL BISULFATE 75 MG TAB PO SCH (10:00)
[2025-07-13] MEDS ORDERED: ENOXAPARIN SOD 30 MG/0.3 ML SYRINGE SC SCH (10:00)
[2025-07-13] MEDS ORDERED: PANTOPRAZOLE 40 MG/10 ML VIAL INJ IV SCH (10:00)
== END 2025-07-13 00:40 | disposition short-term general hospital (02) ==
LOC: ER 16:35 → EDBD 16:35 → OVERFLOW 21:22 → UNDOADMIN 21:22 → UNDODISIN 07-13 00:40
DX: I63.9 Cerebral infarction, unspecified (principal); I13.0 Hypertensive heart and chronic kidney disease with heart failure and stage 1 through stage 4 chronic kidney disease, or unspecified chronic kidney disease; E11.22 Type 2 diabetes mellitus with diabetic chronic kidney disease; N18.9 Chronic kidney disease, unspecified; I50.9 Heart failure, unspecified; I48.91 Unspecified atrial fibrillation; Z98.890 Other specified postprocedural states
CPT/HCPCS: 36415; 70450; 71045; 80053; 80307; 81001; 83036; 83605; 83880; 84484; 85025; 93005; 93970; G0378

== ENCOUNTER 2025-10-25 18:10 | Inpatient (IN) | payer MEDICAID ==
[~2025-10-25] VITALS: Ht 165.1 cm; Wt 115.2 kg
[~2025-10-25 18:10] MED LIST: AML5T PO; APIX5TAB PO; ATOR-507 PO; CARV6.2551 PO; EMPA1TAB3 PO; PREG50CA PO; SOLI5TAB42 PO
--- NOTE | 2025-10-25 18:29 | ECG ---
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
--- NOTE | 2025-10-25 18:57 | DVH ---
CHEST RADIOGRAPH Indication: chest pain Technique: Single frontal view of the chest was obtained COMPARISON: XY CHEST PORTABLE on DOS: 07/12/25, XY CHEST PORTABLE on DOS: 10/04/23 FINDINGS: Lines and Tubes: None Lungs: Clear Pleura: No effusion. No pneumothorax. Cardiomediastinal contours: Unremarkable Bones: No acute osseous abnormality. Median sternotomy. IMPRESSION: No acute disease.
[2025-10-25 18:58] LABS: Hematocrit 38.1 % (36.0-46.0); Hemoglobin 11.7 g/dL (12.2-16.2); Mean Corpuscular Hemoglobin 25.9 pg (28.0-32.0); Mean Corpuscular Volume 84.1 fL (80.0-100.0); Nucleated Red Blood Cells % 0.1 %
[2025-10-25 19:04] LABS: Potassium 4.6 mmol/L (3.5-5.1)
[2025-10-25 19:05] LABS: Anion Gap 10 (5-15); Carbon Dioxide 22 mmol/L (20-31)
[2025-10-25 19:10] LABS: BUN/Creatinine Ratio 12.5 (10.0-20.0); Lipase 50 U/L (12-53)
[2025-10-25 19:19] LABS: Blood Urea Nitrogen 51 mg/dL (9-23); Calcium 8.5 mg/dL (8.7-10.4); Chloride 93 mmol/L (98-107); Sodium 125 mmol/L (136-145)
[2025-10-25 19:23] LABS: Glucose 786 mg/dL (74-106)
--- NOTE | 2025-10-25 19:40 | ED.PDOC ---
History of Present Illness HPI Comments 55-year-old female presents with spouse for chief complaint of diffuse chest wall pain associated with dyspnea. Significant history for AFib, CABG - on blood thinners, CHF, CVA, DM, and HTN. Patient reports unprovoked and atraumatic onset of symptoms on 10/22/2025. No previous history of similar pain in the past or pertinent family history of cardiac disease. She endorses on having associated nausea with symptoms earlier today. At time of assessment, patient reports symptoms resolving on their own and feeling better now, however still having mild shortness of breath and pain. She has not tried anything for his symptoms at home. She states nothing makes her symptoms better or worse. She denies any fever, cough, nausea, vomiting, diarrhea, abdominal pain, sick contacts, recent travel. Chief Complaint: Shortness of Breath Time Seen by MD: 18:40 Primary Care Provider: unknown Reviewed Notes: Nurses Notes, Medications, Allergies Allergies: Coded Allergies: NO KNOWN ALLERGIES (Unverified , 08/14/21) Information Source: Patient Mode of Arrival: Wheelchair Severity: Moderate Timing: Days Duration: Since onset Prehospital treatment: None Past Medical History PAST MEDICAL HISTORY: AFIB, CHF, CVA, DM, HTN Surgical History: CABG [employer]ING INS[employer]OR History: No Pertinent [employer] INS[employer]OR History Family History Family History: Reviewed,noncontributory to illness Social History Smoker: Non-Smoker Alcohol: Denies ETOH Use Drugs: Denies Drug Use Lives In: Home All Other Systems: Reviewed and Negative (Comprehensive review of systems are negative unless otherwise stated in HPI) Physical Exam General Appearance: No Apparent Distress, Obese HEENT: Normal ENT Inspection, Pharynx Normal, TMs Normal Neck: Full Range of Motion, Non-Tender, Normal, Normal Inspection Respiratory: Chest Non-Tender, Lungs Clear, No Accessory Muscle Use, No Respiratory Distress, Normal Breath Sounds Cardiovascular: No Edema, No JVD, No Murmur, No Gallop, Normal Peripheral Pulses, Regular Rate/Rhythm Breast Exam: Deferred Gastrointestinal: No Organomegaly, Non Tender, No Pulsatile Mass, Normal Bowel Sounds, Soft Genitalia: Deferred Pelvic: Deferred Rectal: Deferred Extremities: No calf tenderness, Normal capillary refill, Normal inspection, Normal range of motion, Non-tender, No pedal edema Musculoskeletal : Apperance: Normal Neurologic: Alert, 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 Was a procedure done?: No Differential Dx Considerations may include: AL, ACS, URI, PNA, angina, anxiety, costochondritis, pericarditis, gastritis, viral syndrome, electrolyte imbalance, dehydration, among others X-Ray, Labs, Meds, VS Vital Signs Date Time Temp Pulse Resp B/P (MAP) Pulse Ox O2 Delivery O2 Flow Rate FiO2 10/25/25 19:36 20 96 Room Air* 0 21 10/25/25 18:28 82 10/25/25 18:20 98.0 88 20 140/88 (105) 95 98.0 10/25/25 18:18 98.8 84 17 150/85 98 98.8 Lab Test 10/25/25 19:37 10/25/25 18:43 Range/Units Total Bilirubin 0.3 0.2-1.0 mg/dL Direct Bilirubin 0.1 <0.3 mg/dL Aspartate Amino Transferase (AST) 15 13-40 U/L Alanine Aminotransferase (ALT) 17 7-40 U/L Alkaline Phosphatase 111 46-116 U/L Troponin I High Sensitivity 11 11 </=34 ng/L Total Protein 6.8 5.7-8.2 g/dL Albumin 3.6 3.2-4.8 g/dL Beta-Hydroxybutyric Acid 0.893 H < 0.4 mmol/L White Blood Count 5.6 4.4-10.8 10^3/uL Red Blood Count 4.53 4.0-5.20 10^6/uL Hemoglobin 11.7 L 12.2-16.2 g/dL Hematocrit 38.1 36.0-46.0 % Mean Corpuscular Volume 84.1 80.0-100.0 fL Mean Corpuscular Hemoglobin 25.9 L 28.0-32.0 pg Mean Corpuscular Hemoglobin Concent 30.8 L 32.0-36.0 g/dL Red Cell Distribution Width 13.7 11.8-14.3 % Platelet Count 178 140-450 10^3/uL Mean Platelet Volume 9.4 6.9-10.8 fL Neutrophils (%) (Auto) 63.0 37.0-80.0 % Lymphocytes (%) (Auto) 26.0 10.0-50.0 % Monocytes (%) (Auto) 8.5 0.0-12.0 % Eosinophils (%) (Auto) 1.9 0.0-7.0 % Basophils (%) (Auto) 0.6 0.0-2.0 % Neutrophils # (Auto) 3.5 1.6-8.6 10 ^3/uL Lymphocytes # (Auto) 1.5 0.4-5.4 10 ^3/uL Monocytes # (Auto) 0.5 0-1.3 10 ^3/uL Eosinophils # (Auto) 0.1 0-0.8 10 ^3/uL Basophils # (Auto) 0 0-0.2 10 ^3/uL Nucleated Red Blood Cells 0.1 % Prothrombin Time 10.0 9.3-11.8 sec Prothrombin Time INR 0.94 0.9-1.15 Activated Partial Thromboplast Time 28.4 24.5-34.5 SEC Sodium Level 125 L 136-145 mmol/L Potassium Level 4.6 3.5-5.1 mmol/L Chloride Level 93 L 98-107 mmol/L Carbon Dioxide Level 22 20-31 mmol/L Anion Gap 10 5-15 Blood Urea Nitrogen 51 H 9-23 mg/dL Creatinine 4.08 H 0.550-1.02 mg/dL Glomerular Filtration Rate Calc 12 >90 mL/min BUN/Creatinine Ratio 12.5 10.0-20.0 Serum Glucose 786 *H 74-106 mg/dL Serum Osmolality 299 H 278-298 mOsm/kg Calcium Level 8.5 L 8.7-10.4 mg/dL B-Type Natriuretic Peptide 36.36 0-100 pg/mL Lipase 50 12-53 U/L Current Medications Medications (Trade) Dose Ordered Sig/Roscoe Route Start Time Stop Time Status Last Admin Insulin Human Regular (InsuLIN R) 5 units ONCE ONCE IV 10/25/25 19:45 10/25/25 19:46 DC 10/25/25 20:22 X-Ray, Labs, Meds, VS Comment Patient with history of CAD status post CABG, hypertension, CKD, presents with chest pain and shortness of breath. Chest x-ray to evaluate for evidence of pneumonia, pneumothorax, CHF EKG and troponin to evaluate for evidence of arrhythmia, ACS, AMI Lab work (CBC, BMP) to evaluate for evidence of severe anemia, electrolyte abnormality including hypokalemia, hyperkalemia, hypernatremia, hyponatremia, hyperglycemia, hypoglycemia, etc. Consider CT angio chest due to patient's presenting symptoms, but no CT angio chest obtained due to alternate cause of patient's presenting symptoms more likely after initial workup and management Re-evaluate Social determinant surveillance affecting care: Social determinants of health that will affect the patient's care: Poor health literacy (additional time provided an explanation) Drug abuse (provided counseling discussed risks of substance abuse) Alcohol abuse (provided counseling discussed risks of substance abuse) Psychiatric illness poorly controlled (additional time providing in explanations) Poor access to outpatient care/followup (provided outpatient resources) Lack of transportation (arrange transportation as needed) Homelessness (provided resources) Time of 1ST Reevaluation: 19:20 Reevaluation 1ST: Unchanged Patient Education/Counseling: Diagnosis, Treatment, Other (Need for admission) Family Education/Counseling: Diagnosis, Treatment, Other (Need for admission) SEPSIS Sepsis Screen Date sepsis recognized/suspect: Oct 25, 2025 Time Sepsis recognized/suspect: 1817 Recent Procedure: No On Antibiotic Therapy: No Respiratory Rate >20: No Heart Rate >90: No Temp<36 C (96.8 F) or >38.3 C: No SBP <90 or MAP <65 mmHG: No New Acute Mental Status Change: No Is the patient on CPAP, BIPAP,: No Physician Orders Chest Portable (10/25/25 18:27) Electrocardigram (10/25/25 18:27) Electrocardigram (10/25/25 19:27) Electrocardigram (10/25/25 21:27) Vital Signs Date Time Temp Pulse Resp B/P (MAP) Pulse Ox O2 Delivery O2 Flow Rate FiO2 10/25/25 19:36 20 96 Room Air* 0 21 10/25/25 18:28 82 10/25/25 18:20 98.0 88 20 140/88 (105) 95 98.0 10/25/25 18:18 98.8 84 17 150/85 98 98.8 Laboratory Tests Test 10/25/25 18:43 White Blood Count 5.6 10^3/uL (4.4-10.8) Medications Medications Dose Ordered Sig/Roscoe Route Start Time Stop Time Status Last Admin Dose Admin Insulin Human Regular 5 units ONCE ONCE IV 10/25/25 19:45 10/25/25 19:46 DC 10/25/25 20:22 Departure 1 Departure Time of Disposition: 20:08 (On reassessment, patient found to have an ANALY for a baseline creatinine of 3 as well as significant hyperglycemia. Given IV insulin. Spoke to Dr. Virk at [facility] who gave authorization to admit here. Authorization #[id number]. We will admit here for uncontrolled diabetes, chest pain with elevated heart score, and ANALY.) Impression: Primary Impression: Acute chest pain Additional Impressions: ANALY (acute kidney injury) Uncontrolled diabetes mellitus Qualified Codes: E11.65 - Type 2 diabetes mellitus with hyperglycemia Acute dyspnea Disposition: ADMITTED INPATIENT Admit to: Tele Condition: Guarded Discharged With: Spouse Critical Care Note Critical Care Time?: Yes (35 min-critical care time only) Critical care comment: ANALY, hyperglycemia Stability Stability form required: No Heart Score Heart Score: Heart Score Response (Comments) Value History Moderate Suspicious 1 EKG Normal 0 Age 45-64 1 Risk Factors >3 or Hx ASHD 2 Troponin Normal limit 0 Total 4 I personally scribed for SHAN OSBORNE MD ([email or web address]) on 10/25/25 at 19:40. Electronically submitted by David Archer [email or web address]). SHAN OSBORNE MD Oct 25, 2025 19:40
[2025-10-25] MEDS: InsuLIN REG 1unit/0.01ml Soln (100units/ml) IV ONE (20:22)
--- NOTE | 2025-10-25 21:28 | DVHHPRES ---
History of Present Illness Resident Creating Document: NEVA GROSS RESIDENT History of Present Illness This is a 55-year-old female with past medical history of Afib, s/p CABG, CHF, hypertension, uncontrolled type 2 diabetes mellitus, CKD presented to the ED with a chief complaint of chest pain, chills and generalized weakness since Friday prior to this admission. The patient states that since Friday she started feeling chest pain on deep breathing which is localized central in the chest, 5/10 and associated with chills and nausea. She also complaint of increased frequency of urination, nocturia, dry mouth and generalized weakness for the same duration. She checked blood sugar in the home which was in the range of fasting more than 260 mg/dl and denies any missed dose of insulin. She is following with field reviewer in [place], currently on stage 5 CKD and Discussing about the options of dialysis. She denies fever, shortness of breath, diaphoresis, abdominal pain, vomiting, dysuria or any change in bowel habit. Past Medical History Afib, CHF,Hypertension, uncontrolled type 2 diabetes mellitus, CKD Past Surgical History CABG Family History Noncontributory Past Social History Lives with Nonsmoker, nonalcoholic and never tried any drugs Review of Systems Constitutional: Yes: Chills, Weakness; No: Fever, Sweats, Malaise, Other Eyes: No: Pain, Vision change, Conjunctivae inflammation, Eyelid inflammation, Other, Redness ENT: No: Ear pain, Ear discharge, Nose pain, Nose discharge, Nose congestion, Mouth pain, Mouth swelling, Throat pain, Throat swelling, Other Respiratory: Cough, Dry; No: Shortness of breath, SOB with excertion, Wheezing, Hemoptysis, Pleuritic Pain, Sputum, Wheezing, Other Cardiovascular: Chest Pain; No: Palpitations, Orthopnea, Paroxysmal Noc. Dyspnea, Edema, Lt Headedness, Other Gastrointestinal: Nausea; No: Vomiting, Abdominal Pain, Diarrhea, Constipation, Melena, Hematochezia, Other Genitourinary: No Dysuria, No Frequency, No Incontinence, No Hematuria, No Retention, No Other Musculoskeletal: No: other, neck pain, shoulder pain, arm pain, back pain, hand pain, leg pain, foot pain Skin: No: Rash, Lesions, Jaundice, Bruising, Other Neurological: No: Weakness, Numbness, Incoordination, Change in speech, Confusion, Seizures, Other Allergies: Coded Allergies: NO KNOWN ALLERGIES (Unverified , 08/14/21) Exam Vital Signs Vital Signs Date Time Temp Pulse Resp B/P (MAP) Pulse Ox O2 Delivery O2 Flow Rate FiO2 10/25/25 19:36 20 96 Room Air* 0 21 10/25/25 18:28 82 10/25/25 18:20 98.0 140/88 (105) 98.0 Exam Physical examination: General Appearance: Alert, Oriented X3, Cooperative, mild distress HEENT: Atraumatic, PERRLA, EOMI, Mucous membrane dry. Respiratory: Clear to auscultation, Normal air movement Cardiovascular: Regular rate, Normal S1, Normal S2, No murmurs, no chest wall tenderness Abdominal: Normal bowel sounds, Soft, No tenderness, No hepatospenomegaly, No masses Extremities: No clubbing, No cyanosis, No edema, Normal pulses, No tenderness/swelling Skin: No rashes, No breakdown, No significant lesion Neuro: Use walker, Normal speech, Strength at 5/5 X4 ext, Normal tone, Sensation intact, Cranial nerves 3-12 NL, Reflexes 2+ Psych/Mental Status: Mental status NL, Mood NL Labs/Xrays Labs Test 10/25/25 19:37 10/25/25 18:43 Range/Units Troponin I High Sensitivity 11 </=34 ng/L White Blood Count 5.6 4.4-10.8 10^3/uL Red Blood Count 4.53 4.0-5.20 10^6/uL Hemoglobin 11.7 L 12.2-16.2 g/dL Hematocrit 38.1 36.0-46.0 % Mean Corpuscular Volume 84.1 80.0-100.0 fL Mean Corpuscular Hemoglobin 25.9 L 28.0-32.0 pg Mean Corpuscular Hemoglobin Concent 30.8 L 32.0-36.0 g/dL Red Cell Distribution Width 13.7 11.8-14.3 % Platelet Count 178 140-450 10^3/uL Mean Platelet Volume 9.4 6.9-10.8 fL Neutrophils (%) (Auto) 63.0 37.0-80.0 % Lymphocytes (%) (Auto) 26.0 10.0-50.0 % Monocytes (%) (Auto) 8.5 0.0-12.0 % Eosinophils (%) (Auto) 1.9 0.0-7.0 % Basophils (%) (Auto) 0.6 0.0-2.0 % Neutrophils # (Auto) 3.5 1.6-8.6 10 ^3/uL Lymphocytes # (Auto) 1.5 0.4-5.4 10 ^3/uL Monocytes # (Auto) 0.5 0-1.3 10 ^3/uL Eosinophils # (Auto) 0.1 0-0.8 10 ^3/uL Basophils # (Auto) 0 0-0.2 10 ^3/uL Nucleated Red Blood Cells 0.1 % Sodium Level 125 L 136-145 mmol/L Potassium Level 4.6 3.5-5.1 mmol/L Chloride Level 93 L 98-107 mmol/L Carbon Dioxide Level 22 20-31 mmol/L Anion Gap 10 5-15 Blood Urea Nitrogen 51 H 9-23 mg/dL Creatinine 4.08 H 0.550-1.02 mg/dL Glomerular Filtration Rate Calc 12 >90 mL/min BUN/Creatinine Ratio 12.5 10.0-20.0 Serum Glucose 786 *H 74-106 mg/dL Calcium Level 8.5 L 8.7-10.4 mg/dL B-Type Natriuretic Peptide 36.36 0-100 pg/mL Lipase 50 12-53 U/L SEPSIS Sepsis Screen Date sepsis recognized/suspect: Oct 25, 2025 Time Sepsis recognized/suspect: 1817 Recent Procedure: No On Antibiotic Therapy: No Respiratory Rate >20: No Heart Rate >90: No Temp<36 C (96.8 F) or >38.3 C: No SBP <90 or MAP <65 mmHG: No New Acute Mental Status Change: No Is the patient on CPAP, BIPAP,: No Physician Orders Chest Portable (10/25/25 18:27) Electrocardigram (10/25/25 18:27) Troponin-I Hs (10/25/25 21:27) Electrocardigram (10/25/25 19:27) Electrocardigram (10/25/25 21:27) Admit (10/25/25 21:06) Code Status (10/25/25 21:06) Echo 2d Mode Cardiac Dop (10/25/25 21:10) Urinalysis (10/25/25 21:10) Hepatic Panel (10/25/25 21:10) Beta-Hydroxybutyrate (10/25/25 21:10) Covid19 Antigen Felecia (10/25/25 ) Rapid Influenza A&B (10/25/25 21:10) Osmolality, Serum (10/25/25 21:10) PTPTT (10/25/25 21:26) Vital Signs Date Time Temp Pulse Resp B/P (MAP) Pulse Ox O2 Delivery O2 Flow Rate FiO2 10/25/25 19:36 20 96 Room Air* 0 21 10/25/25 18:28 82 10/25/25 18:20 98.0 88 20 140/88 (105) 95 98.0 10/25/25 18:18 98.8 84 17 150/85 98 98.8 Laboratory Tests Test 10/25/25 18:43 White Blood Count 5.6 10^3/uL (4.4-10.8) Medications Medications Dose Ordered Sig/Roscoe Route Start Time Stop Time Status Last Admin Dose Admin Insulin Human Regular 5 units ONCE ONCE IV 10/25/25 19:45 10/25/25 19:46 DC 10/25/25 20:22 5 UNITS Assessment/Plan Assessment/Plan Assessment and plan: # Uncontrolled type 2 diabetes mellitus # Ruled out DKA/HHS # Pseudohyponatremia due to above - on arrival blood sugar was 786 - corrected sodium is 136 - serum osmolality 299 and patient has no symptoms/sign of neurological dysfunction - normal anion gap and beta hydroxybutyric acid 0.893 - Lantus 25 units and daily - Lispro 3 units before each meal and moderate sliding scale of insulin # ANALY superimposed on CKD likely prerenal hemodynamically mediated/VMN - IV NS 1 L at 75 mL/hours - consulted nephrology - monitor BMP # Hypertensive heart disease with chronic systolic heart failure # Paroxysmal atrial fibrillation with secondary hypercoagulable state - Justen Vasc score 6 - Chest x-ray demonstrated cardiomegaly without any pulmonary vascular congestion - BNP is low - Echo on 2022 demonstrated EF 30-35% - Ordered another echo - Continue amlodipine 5 mg and lisinopril 10 mg daily - Lovenox 1 mg/kg body weight daily due to low GFR # DVT prophylaxis - Patient is on Lovenox Goal of care and code status discussed with the patient for more than 23 minutes full code Plan discussed with Dr. Hines Plan discussed with: Patient, Other (RN) My Orders Orders - NEVA GROSS Procedure Category Date Status Time Admit ADMIT 10/25/25 Transmitted 21:06 Code Status CODE 10/25/25 Transmitted 21:06 Echo 2d Mode Cardiac US 10/25/25 Logged DOP 21:10 Urinalysis LAB 10/25/25 Logged 21:10 Hepatic Panel LAB 10/25/25 Logged 21:10 Beta-Hydroxybutyrate LAB 10/25/25 Logged 21:10 Covid19 Antigen Felecia LAB 10/25/25 Logged Rapid Influenza A&B LAB 10/25/25 Logged 21:10 Osmolality, Serum LAB 10/25/25 Logged 21:10 PTPTT LAB 10/25/25 Transmitted 21:26 Visit Coding STANDARD RES Billing Provider: ELA HINES MD Date of Service if different f: Oct 25, 2025 Common Visit Codes: 07846-ABOHGRR INP/OBS CARE (HIGH) Secondary Visit Codes: 05372-[id number] CARE PLAN 30 MINUTES NEVA GROSS RESIDENT Oct 25, 2025 21:28
[2025-10-25] MEDS ORDERED: DEXTROSE (50%) 50ML SYRG IV PRN (21:30)
[2025-10-25] MEDS: INSULIN LANTUS (GLARGINE) 1 /0.01ml (100units/ml) SC ONE (21:30)
[2025-10-25 21:50] LABS: Alanine Aminotransferase 17.0 U/L (7-40); Albumin 3.6 g/dL (3.2-4.8); Alkaline Phosphatase 111.0 U/L (46-116); Bilirubin, Direct 0.1 mg/dL (<0.3); Bilirubin, Total 0.3 mg/dL (0.2-1.0); Total Protein 6.8 g/dL (5.7-8.2)
[2025-10-25 21:51] LABS: INR 0.94 (0.9-1.15); Partial Thromboplastin Time 28.4 SEC (24.5-34.5); Prothrombin Time 10.0 sec (9.3-11.8)
[2025-10-25] MEDS: ACCU-CHEK COMFORT CURVE STRIP VI SCH (22:13)
[2025-10-25] MEDS: SODIUM CHLORIDE 0.9% 1,000 ML IV ONE (22:16)
[2025-10-25 23:17] LABS: COVID19 ANTIGEN SOFIA FIA NEGATIVE (NEGATIVE)
[2025-10-25] MEDS: InsuLIN REG 1unit/0.01ml Soln (100units/ml) SC SCH (23:21)
--- NOTE | 2025-10-25 23:57 | DVH ---
Bilateral lower extremity venous duplex Clinical History: to rule out DVT Comparison: US BILAT LOWER DVT on DOS: 07/12/25 Technique: Duplex Doppler evaluation of the deep venous systems of both lower extremities from the common femoral veins to the popliteal veins including color Doppler and spectral/pulsed waveform analysis was performed. Findings: RIGHT SIDE: The common femoral vein demonstrates appropriate compressibility and waveform variability. There is compressibility/patency of the great saphenous vein at the proximal thigh. The femoral vein demonstrates appropriate compressibility and waveform variability. The deep femoral vein demonstrates appropriate compressibility and waveform variability. The popliteal vein demonstrates appropriate compressibility and waveform variability. There is normal compressibility at the tibioperoneal trunk. Probable popliteal cyst measures 3.1 x 2.7 x 0.7 cm. LEFT SIDE: The common femoral vein demonstrates appropriate compressibility and waveform variability. There is compressibility/patency of the great saphenous vein at the proximal thigh. The femoral vein demonstrates appropriate compressibility and waveform variability. The deep femoral vein demonstrates appropriate compressibility and waveform variability. The popliteal vein demonstrates appropriate compressibility and waveform variability. There is normal compressibility at the tibioperoneal trunk. Probable popliteal cyst measures 2.9 x 2.2 x 0.7 cm. Impression: 1. No right or left femoropopliteal venous thrombosis. 2. Probable bilateral popliteal cysts.
[2025-10-26] VITALS (9 sets, daily range): BP systolic 111–134; BP diastolic 60–75; PULSE 67–79; RESP 12–18; TEMP 97.2–97.7; O2SAT 91–98
[2025-10-26] MEDS: ENOXAPARIN SOD 100 MG/1 ML SYRINGE SC ONE (01:16)
[2025-10-26] MEDS: ACETAMINOPHEN 500 MG TAB or CAP PO ONE (01:18)
[2025-10-26] MEDS: INSULIN LANTUS (GLARGINE) 1 /0.01ml (100units/ml) SC SCH (05:12)
[2025-10-26 06:04] LABS: Hemoglobin 11.1 g/dL (12.2-16.2); Mean Corpuscular Hemoglobin 26.3 pg (28.0-32.0); Nucleated Red Blood Cells % 0.1 %
[2025-10-26 06:07] LABS: Hematocrit 33.4 % (36.0-46.0); Mean Corpuscular Volume 79.4 fL (80.0-100.0)
[2025-10-26] MEDS: InsuLIN REG 1unit/0.01ml Soln (100units/ml) SC SCH (06:17)
[2025-10-26] MEDS: INSULIN LISPRO (HUMAN) 100 UNITS/ML ML SC SCH (06:17)
[2025-10-26 06:22] LABS: Anion Gap 9 (5-15); Carbon Dioxide 24 mmol/L (20-31); Chloride 99 mmol/L (98-107); Potassium 4.1 mmol/L (3.5-5.1)
[2025-10-26 06:23] LABS: Calcium 8.8 mg/dL (8.7-10.4)
[2025-10-26 06:28] LABS: BUN/Creatinine Ratio 11.4 (10.0-20.0)
[2025-10-26 06:30] LABS: Blood Urea Nitrogen 49 mg/dL (9-23); Glucose 321 mg/dL (74-106); Sodium 132 mmol/L (136-145)
[2025-10-26] MEDS: ACETAMINOPHEN 500 MG TAB or CAP PO PRN (08:15)
[2025-10-26] MEDS: LISINOPRIL 5 MG TAB PO SCH (09:21)
[2025-10-26] MEDS: ENOXAPARIN SOD 100 MG/1 ML SYRINGE SC SCH (09:29)
[2025-10-26] MEDS ORDERED: INSULIN LANTUS (GLARGINE) 1 /0.01ml (100units/ml) SC SCH (10:00)
[2025-10-26] MEDS ORDERED: HEPARIN SODIUM (PORCINE) 5000 UNITS/ML 1ML VIAL SC SCH (10:00)
--- NOTE | 2025-10-26 10:01 | DVHINCON2 ---
Date of service: Oct 26, [address] Hawk History of Present Illness Patient is a 55-year-old obese female with past medical history significant fo AFIB, CHF, CVA, DM, HTN at Chronic Kidney Disease stage 5 followed by Nephrology cm ALESHA Rosie is admitted for shortness of breath. On admission patient found to have elevated BUN creatinine nephrology is consulted for acute kidney injury Past Medical History PAST MEDICAL HISTORY: AFIB, CHF, CVA, DM, HTN Past Surgical History Surgical History: CABG Allergies: Coded Allergies: NO KNOWN ALLERGIES (Unverified , 08/14/21) Current Medications Current Medications Medications (Trade) Dose Ordered Sig/Roscoe Route PRN Reason Start Time Stop Time Status Last Admin Insulin Glargine (Lantus) 20 units DAILY@1000 SC 10/26/25 10:00 10/26/25 04:18 DC Diagnostic Test (Pha) (Accu-Chek Comfort Curve T) 1 strip ACHS 10/25/25 22:00 10/26/25 06:18 Insulin Human Regular (InsuLIN R) HS SC 10/25/25 22:00 10/25/25 23:21 Insulin Human Regular (InsuLIN R) AC SC 10/26/25 07:00 10/26/25 06:17 Dextrose 50 ml UD PRN IV Blood Sugar LESS THAN 60 10/25/25 21:30 Heparin Sodium (Porcine) 5,000 units Q12HR SC 10/26/25 10:00 10/25/25 23:37 DC Amlodipine Besylate (Norvasc Tablet) 5 mg DAILY PO 10/26/25 10:00 10/26/25 09:21 Enoxaparin Sodium (Lovenox) 120 mg DAILY SC 10/26/25 10:00 Lisinopril (Zestril Tablet) 10 mg DAILY PO 10/26/25 10:00 10/26/25 09:21 Acetaminophen (Tylenol Tablet Or Capsule) 650 mg Q6HP PRN PO MODERATE PAIN (4-6 PAIN SCALE) 10/26/25 01:00 10/26/25 08:15 Insulin Glargine (Lantus) 25 units DAILY@1000 SC 10/26/25 04:30 10/26/25 05:12 Insulin Human Lispro (HumaLOG) 3 units AC SC 10/26/25 07:00 10/26/25 06:17 Family History: Patient reports no known family medical history. Review of Systems All 12 item review of systems reviewed with the patient nonsignificant except what is mentioned in the history of present H&P Exam Vital Signs/I&O Vital Sign Date Time Temp Pulse Resp B/P (MAP) Pulse Ox O2 Delivery O2 Flow Rate FiO2 10/26/25 09:21 125/85 10/26/25 09:00 97.6 74 16 95 97.6 10/26/25 00:25 Room Air* 0 21 Intake and Output 10/25/25 10/26/25 19:00 07:00 Intake Total 925 ml Balance 925 ml Intake Oral 400 ml IV Total 525 ml # Voids 4 Physical Exam Obese female lying comfortably in bed Lungs clear to auscultation bilaterally Cardiac exam regular rate and rhythm GI obese nontender normal Extremity 1+ edema Neuro nonfocal Labs/Diagnostic Data Labs/Diagnostic Data Laboratory Tests Test 10/26/25 06:10 10/26/25 05:17 10/26/25 05:10 10/25/25 23:10 Range/Units POC Glucose 306 H 355 H 548 *H 70-106 mg/dl White Blood Count 6.7 4.4-10.8 10^3/uL Red Blood Count 4.21 4.0-5.20 10^6/uL Hemoglobin 11.1 L 12.2-16.2 g/dL Hematocrit 33.4 #L 36.0-46.0 % Mean Corpuscular Volume 79.4 #L 80.0-100.0 fL Mean Corpuscular Hemoglobin 26.3 L 28.0-32.0 pg Mean Corpuscular Hemoglobin Concent 33.2 32.0-36.0 g/dL Red Cell Distribution Width 13.3 11.8-14.3 % Platelet Count 170 140-450 10^3/uL Mean Platelet Volume 8.7 6.9-10.8 fL Neutrophils (%) (Auto) 57.4 37.0-80.0 % Lymphocytes (%) (Auto) 31.9 10.0-50.0 % Monocytes (%) (Auto) 8.2 0.0-12.0 % Eosinophils (%) (Auto) 2.0 0.0-7.0 % Basophils (%) (Auto) 0.5 0.0-2.0 % Neutrophils # (Auto) 3.8 1.6-8.6 10 ^3/uL Lymphocytes # (Auto) 2.1 0.4-5.4 10 ^3/uL Monocytes # (Auto) 0.5 0-1.3 10 ^3/uL Eosinophils # (Auto) 0.1 0-0.8 10 ^3/uL Basophils # (Auto) 0 0-0.2 10 ^3/uL Nucleated Red Blood Cells 0.1 % Sodium Level 132 #L 136-145 mmol/L Potassium Level 4.1 3.5-5.1 mmol/L Chloride Level 99 98-107 mmol/L Carbon Dioxide Level 24 20-31 mmol/L Anion Gap 9 5-15 Blood Urea Nitrogen 49 H 9-23 mg/dL Creatinine 4.31 H 0.550-1.02 mg/dL Glomerular Filtration Rate Calc 11 >90 mL/min BUN/Creatinine Ratio 11.4 10.0-20.0 Serum Glucose 321 H 74-106 mg/dL Hemoglobin A1c > 14.0 H <5.7 % A1C Calcium Level 8.8 8.7-10.4 mg/dL Thyroid Stimulating Hormone (TSH) 1.68 0.55-4.78 uIU/mL Test 10/25/25 23:08 10/25/25 21:56 10/25/25 21:39 10/25/25 19:37 Range/Units POC Glucose 534 *H 70-106 mg/dl Influenza Type A Antigen Negative Negative Influenza Type B Antigen Negative Negative SARS-CoV-2 Antigen (Rapid) Negative NEGATIVE Troponin I High Sensitivity 14 11 </=34 ng/L Total Bilirubin 0.3 0.2-1.0 mg/dL Direct Bilirubin 0.1 <0.3 mg/dL Aspartate Amino Transferase (AST) 15 13-40 U/L Alanine Aminotransferase (ALT) 17 7-40 U/L Alkaline Phosphatase 111 46-116 U/L Total Protein 6.8 5.7-8.2 g/dL Albumin 3.6 3.2-4.8 g/dL Beta-Hydroxybutyric Acid 0.893 H < 0.4 mmol/L Test 10/25/25 18:43 Range/Units White Blood Count 5.6 4.4-10.8 10^3/uL Red Blood Count 4.53 4.0-5.20 10^6/uL Hemoglobin 11.7 L 12.2-16.2 g/dL Hematocrit 38.1 36.0-46.0 % Mean Corpuscular Volume 84.1 80.0-100.0 fL Mean Corpuscular Hemoglobin 25.9 L 28.0-32.0 pg Mean Corpuscular Hemoglobin Concent 30.8 L 32.0-36.0 g/dL Red Cell Distribution Width 13.7 11.8-14.3 % Platelet Count 178 140-450 10^3/uL Mean Platelet Volume 9.4 6.9-10.8 fL Neutrophils (%) (Auto) 63.0 37.0-80.0 % Lymphocytes (%) (Auto) 26.0 10.0-50.0 % Monocytes (%) (Auto) 8.5 0.0-12.0 % Eosinophils (%) (Auto) 1.9 0.0-7.0 % Basophils (%) (Auto) 0.6 0.0-2.0 % Neutrophils # (Auto) 3.5 1.6-8.6 10 ^3/uL Lymphocytes # (Auto) 1.5 0.4-5.4 10 ^3/uL Monocytes # (Auto) 0.5 0-1.3 10 ^3/uL Eosinophils # (Auto) 0.1 0-0.8 10 ^3/uL Basophils # (Auto) 0 0-0.2 10 ^3/uL Nucleated Red Blood Cells 0.1 % Prothrombin Time 10.0 9.3-11.8 sec Prothrombin Time INR 0.94 0.9-1.15 Activated Partial Thromboplast Time 28.4 24.5-34.5 SEC Sodium Level 125 L 136-145 mmol/L Potassium Level 4.6 3.5-5.1 mmol/L Chloride Level 93 L 98-107 mmol/L Carbon Dioxide Level 22 20-31 mmol/L Anion Gap 10 5-15 Blood Urea Nitrogen 51 H 9-23 mg/dL Creatinine 4.08 H 0.550-1.02 mg/dL Glomerular Filtration Rate Calc 12 >90 mL/min BUN/Creatinine Ratio 12.5 10.0-20.0 Serum Glucose 786 *H 74-106 mg/dL Serum Osmolality 299 H 278-298 mOsm/kg Calcium Level 8.5 L 8.7-10.4 mg/dL Troponin I High Sensitivity 11 </=34 ng/L B-Type Natriuretic Peptide 36.36 0-100 pg/mL Lipase 50 12-53 U/L Assessment Acute kidney injury superimposed Chronic Kidney Disease stage 5 secondary hemodynamic mediated Congestive heart failure exacerbation AFib Uncontrolled Diabetes mellitus type 2 Hypertension Anemia of chronic kidney disease Obesity History CVA Recommendations Closely monitor fluid and electrolytes Avoid nephrotoxic medications Strict I&Os Check urine electrolytes and protein excretion Check kidney ultrasound I agree with diuresis Insulin sliding scale I discussed renal replacement therapy with the patient, patient refused she has follow up with her business associate in [place] next month Patient seen and examined by myself. I discussed my plan of care with the patient and primary nurse at the bedside I would like to thank Dr. Hawk consult, we will follow Plan discussed with: Patient HARSHAD ROYAL MD Oct 26, 2025 10:01
--- NOTE | 2025-10-26 10:48 | DVH ---
EXAM: XY PELVIS AP CLINICAL INDICATION: s/p fall TECHNIQUE: XY PELVIS AP Comparison: None FINDINGS/IMPRESSION: There is no evidence of acute fracture or dislocation. The visualized joint space is well maintained. The alignment is anatomical. There is no radiopaque foreign body.
[2025-10-26 11:05] LABS: Magnesium 2.1 mg/dL (1.6-2.6)
--- NOTE | 2025-10-26 11:08 | DVH ---
US KIDNEY Comparison: None Indication: josiane Technique: Ultrasound exam of the retroperitoneum was performed. Findings: The right kidney is 9 cm. The left kidney is 11.2 cm. No collecting system dilatation. Nonspecific echogenic focus in the right upper pole measuring 1.3 cm. No associated twinkling artifact. Contracted bladder. IMPRESSION: Questionable right upper pole renal calculus. No hydronephrosis.
[2025-10-26 11:50] LABS: Hepatitis B Surface Antigen Negative (Negative)
[2025-10-26 12:02] LABS: Hepatitis C Antibody Negative (Negative)
--- NOTE | 2025-10-26 13:24 | DVHPN2 ---
Subjective Patient continues to report generalized weakness. Reviewed: Care Plan Changes from previous H/P or p: No Changes Eyes: No Pain, No Vision change, No Conjunctivae inflammation, No Eyelid inflammation, No Other, No Redness ENT: No Ear pain, No Ear discharge, No Nose pain, No Nose discharge, No Nose congestion, No Mouth pain, No Mouth swelling, No Throat pain, No Throat swelling, No Other Cardiovascular: Chest Pain; No Palpitations, No Orthopnea, No Paroxysmal Noc. Dyspnea, No Edema, No Lt Headedness, No Other Respiratory: Cough, Dry; No Shortness of breath, No SOB with excertion, No Wheezing, No Hemoptysis, No Pleuritic Pain, No Sputum, No Other Gastrointestinal: Nausea; No Vomiting, No Abdominal Pain, No Diarrhea, No Constipation, No Melena, No Hematochezia, No Other Genitourinary: No Dysuria, No Frequency, No Incontinence, No Hematuria, No Retention, No Other Musculoskeletal: No other, No neck pain, No shoulder pain, No arm pain, No back pain, No hand pain, No leg pain, No foot pain Skin: No Rash, No Lesions, No Jaundice, No Bruising, No Other Objective Vitals Vital Signs Date Time Temp Pulse Resp B/P (MAP) Pulse Ox O2 Delivery O2 Flow Rate FiO2 10/26/25 12:56 97.2 70 12 111/62 (78) 96 97.2 10/26/25 07:30 Room Air* 0 21 Intake/Output Intake and Output 10/26/25 07:00 Intake Total 925 ml Balance 925 ml Intake Oral 400 ml IV Total 525 ml # Voids 4 General Appearance: Alert, Oriented X3, Cooperative, No acute distress, Other (Obesity) HEENT: Atraumatic, PERRLA Lungs: Clear to auscultation, Normal air movement Cardiovascular: Normal S1, Normal S2 Abdomen: Normal bowel sounds, Soft, No tenderness Musculoskeletal: Normal sensory function, Normal motor function Skin: Dry, Intact Psych/Mental Status: Mental status NL, Mood NL Medications Current Medications Medications Dose Ordered Sig/Roscoe Route Start Time Stop Time Status Last Admin Dose Admin Diagnostic Test (Pha) 1 strip ACHS 10/25/25 22:00 10/26/25 11:21 1 STRIP Insulin Human Regular HS SC 10/25/25 22:00 10/25/25 23:21 10 UNITS Insulin Human Regular AC SC 10/26/25 07:00 10/26/25 06:17 12 UNITS Dextrose 50 ml UD PRN IV 10/25/25 21:30 Amlodipine Besylate 5 mg DAILY PO 10/26/25 10:00 10/26/25 09:21 5 MG Enoxaparin Sodium 120 mg DAILY SC 10/26/25 10:00 Lisinopril 10 mg DAILY PO 10/26/25 10:00 10/26/25 09:21 10 MG Acetaminophen 650 mg Q6HP PRN PO 10/26/25 01:00 10/26/25 08:15 650 MG Insulin Human Lispro 3 units AC SC 10/26/25 07:00 10/26/25 06:17 3 UNITS Insulin Glargine 25 units DAILY@1000 SC 10/27/25 10:00 Laboratory Results Laboratory Tests 10/26/25 05:17 Chemistry Test 10/25/25 18:43 10/25/25 19:37 10/26/25 05:17 Calcium Level 8.5 mg/dL (8.7-10.4) L 8.8 mg/dL (8.7-10.4) Albumin 3.6 g/dL (3.2-4.8) Total Protein 6.8 g/dL (5.7-8.2) Magnesium Level 2.1 mg/dL (1.6-2.6) Phosphorus Level 5.1 mg/dL (2.4-5.1) Coagulation Test 10/25/25 18:43 Prothrombin Time 10.0 sec (9.3-11.8) Prothrombin Time INR 0.94 (0.9-1.15) Activated Partial Thromboplast Time 28.4 SEC (24.5-34.5) Lipid panel Test 10/25/25 18:43 Lipase 50 U/L (12-53) Cardiac Markers Test 10/25/25 18:43 B-Type Natriuretic Peptide 36.36 pg/mL (0-100) LFT Test 10/25/25 19:37 Alanine Aminotransferase (ALT) 17 U/L (7-40) Alkaline Phosphatase 111 U/L (46-116) Aspartate Amino Transferase (AST) 15 U/L (13-40) Direct Bilirubin 0.1 mg/dL (<0.3) Total Bilirubin 0.3 mg/dL (0.2-1.0) HgA1c, TSH Test 10/26/25 05:17 Hemoglobin A1c > 14.0 % A1C (<5.7) H Thyroid Stimulating Hormone (TSH) 1.68 uIU/mL (0.55-4.78) Labs and/or images reviewed: Labs reviewed by me, Image(s) reviewed by me Assessment/Plan Assessment/Plan Impression: -diabetic ketoacidosis -diabetes mellitus, uncontrolled with A1c greater than 14 -obesity -paroxysmal atrial fibrillation -primary hypertension -CKD stage 5 -coronary artery disease with previous CABG -acute on chronic systolic heart failure Plan: -blood sugars now controlled. Continue current anti glycemic regimen -echocardiogram pending -nephrology consultation -stop Lovenox, change anticoagulation to Eliquis -repeat labs in a.m. -unstable to transfer to [facility] at this time. Re-evaluate for possible transfer are discharged home tomorrow Total time spent with patient discussing and formulating plan of care: 35 minutes. This medical document was created using an electronic medical record system with [employer] dictation system. Although this document has been carefully reviewed, there may still be some phonetic and typographical errors. These areas are purely typographical due to imperfections of the software programs, and do not reflect any compromise in the patient's medical care. Plan discussed with: Patient, Other (RN) Date of Service: Oct 26, 2025 Billing Provider: YRIS GUADALUPE NP Common Visit Codes: [id number] INP/OBS CARE(HIGH) YRIS GUADALUPE NP Oct 26, 2025 13:24
[2025-10-26 15:32] LABS: Urine Protein, UAD 2+ (Negative); Urine WBC Clumps PRESENT /hpf (None Seen)
[2025-10-26] MEDS: APIXABAN 5 MG TAB PO SCH (15:45)
[2025-10-26 15:52] LABS: Protein, Urine 287.2 mg/dL (1-14)
[2025-10-27 01:00] VITALS: BP 102/57; PULSE 78; RESP 16; TEMP 97.8; O2SAT 94
[2025-10-27 05:00] VITALS: BP 107/60; PULSE 76; RESP 18; TEMP 97.8; O2SAT 94
[2025-10-27 08:00] VITALS: PULSE 72
[2025-10-27 08:53] VITALS: BP 119/66; PULSE 75; RESP 18; TEMP 98.4; O2SAT 96
[2025-10-27] MEDS: INSULIN LANTUS (GLARGINE) 1 /0.01ml (100units/ml) SC SCH (10:37)
[2025-10-27 13:00] VITALS: BP 106/59; PULSE 80; RESP 18; TEMP 98.3; O2SAT 95
--- NOTE | 2025-10-27 14:08 | DVHPN2 ---
Progress Note Date Seen: Oct 27, 2025 Medical Necessity Reason Pt with a Central, PICC or Fol: No Subjective Patient reports: No new complaints Other Systems: Patient seen and examined by myself today in follow-up Objective vital signs Vital Sign Date Time Temp Pulse Resp B/P (MAP) Pulse Ox O2 Delivery O2 Flow Rate FiO2 10/27/25 13:00 98.3 80 18 106/59 (75) 95 98.3 10/27/25 08:00 Room Air* 0 21 Total Intake and Output 10/26/25 10/26/25 10/27/25 15:00 23:00 07:00 Intake Total 400 ml 640 ml Balance 400 ml 640 ml medications Current Medications Medications Dose Ordered Sig/Roscoe Route Start Time Stop Time Status Last Admin Dose Admin Diagnostic Test (Pha) 1 strip ACHS 10/25/25 22:00 10/27/25 11:30 1 STRIP Insulin Human Regular HS SC 10/25/25 22:00 10/26/25 21:59 3 UNITS Insulin Human Regular AC SC 10/26/25 07:00 10/27/25 13:27 3 UNITS Dextrose 50 ml UD PRN IV 10/25/25 21:30 Amlodipine Besylate 5 mg DAILY PO 10/26/25 10:00 10/27/25 10:26 5 MG Lisinopril 10 mg DAILY PO 10/26/25 10:00 10/27/25 10:25 10 MG Acetaminophen 650 mg Q6HP PRN PO 10/26/25 01:00 10/27/25 01:24 650 MG Insulin Human Lispro 3 units AC SC 10/26/25 07:00 10/27/25 06:45 3 UNITS Insulin Glargine 25 units DAILY@1000 SC 10/27/25 10:00 10/27/25 10:37 25 UNITS Apixaban 5 mg BID PO 10/26/25 13:44 10/27/25 10:25 5 MG Ceftriaxone Sodium 50 ml @ 100 mls/hr DAILY@09 IV 10/26/25 16:30 10/27/25 10:23 100 MLS/HR Examination: LUNGS:Normal, CVS:Normal, MSK:Normal laboratory and microbiology Laboratory Tests 10/26/25 05:17 Test 10/26/25 05:17 Range/Units Serum Glucose 321 H 74-106 mg/dL Microbiology Date/Time Source Procedure Growth Status 10/26/25 15:00 Voided Urine Urine Culture - Preliminary Resulted Problem List/Assessment/Plan Problem List/Assessment/Plan Acute kidney injury superimposed Chronic Kidney Disease stage 5 secondary hemodynamic mediated Congestive heart failure exacerbation AFib Uncontrolled Diabetes mellitus type 2 Nephrotic proteinuria secondary diabetic nephropathy Hypertension Anemia of chronic kidney disease Obesity History CVA Recommendations Kidney function stable stage five No urine output charted Strict I&Os Renal diet kidney ultrasound reported questionable right nonobstructing kidney stone I agree with diuresis Insulin sliding scale We will continue to follow up Plan discussed with: Patient My Orders My Orders Orders - HARSHAD ROYAL MD Procedure Category Date Status Time Communication Order ORDERS 10/27/25 Transmitted 14:07 HARSHAD ROYAL MD Oct 27, 2025 14:08
--- NOTE | 2025-10-27 15:08 | DVHDS2 ---
Discharge Summary Date of Admission Oct 25, 2025 at 21:06 Date of Discharge: Oct 27, 2025 Admitting Diagnosis Uncontrolled Diabetes Mellitus Labs/Diagnostic Data: Laboratory Results Test 10/27/25 11:35 10/26/25 15:00 10/26/25 05:17 10/25/25 21:56 POC Glucose 189 mg/dl (70-106) Urine Color Light-brown (Yellow) Urine Clarity Ex.turbid (Clear) Urine pH 6.0 (5.0-9.0) Urine Specific [place] 1.008 (1.001-1.035) Urine Protein 2+ (Negative) Urine Ketones Negative (Negative) Urine Blood 3+ /uL (Negative) Urine Nitrite Negative (Negative) Urine Bilirubin Negative (Negative) Urine Urobilinogen Normal mg/dL (Negative) Urine Leukocyte Esterase 3+ /uL (Negative) Urine RBC 54 /hpf (0 - 4) Urine WBC Clumps Present /hpf (None Seen) Urine Microscopic WBC 754 /HPF (0-5) Urine Squamous Epithelial Cells Few /hpf (<5) Urine Bacteria Many /hpf (None Seen) Urine Creatinine 77.46 mg/dL (30.0-125.0) Urine Protein/Creatinine Ratio 3.71 Urine Sodium 29 mmol/L (40-220) Urine Glucose 3+ mg/dL (Normal) Urine Total Protein 287.2 mg/dL (1-14) White Blood Count 6.7 10^3/uL (4.4-10.8) Red Blood Count 4.21 10^6/uL (4.0-5.20) Hemoglobin 11.1 g/dL (12.2-16.2) Hematocrit 33.4 % (36.0-46.0) Mean Corpuscular Volume 79.4 fL (80.0-100.0) Mean Corpuscular Hemoglobin 26.3 pg (28.0-32.0) Mean Corpuscular Hemoglobin Concent 33.2 g/dL (32.0-36.0) Red Cell Distribution Width 13.3 % (11.8-14.3) Platelet Count 170 10^3/uL (140-450) Mean Platelet Volume 8.7 fL (6.9-10.8) Neutrophils (%) (Auto) 57.4 % (37.0-80.0) Lymphocytes (%) (Auto) 31.9 % (10.0-50.0) Monocytes (%) (Auto) 8.2 % (0.0-12.0) Eosinophils (%) (Auto) 2.0 % (0.0-7.0) Basophils (%) (Auto) 0.5 % (0.0-2.0) Neutrophils # (Auto) 3.8 10 ^3/uL (1.6-8.6) Lymphocytes # (Auto) 2.1 10 ^3/uL (0.4-5.4) Monocytes # (Auto) 0.5 10 ^3/uL (0-1.3) Eosinophils # (Auto) 0.1 10 ^3/uL (0-0.8) Basophils # (Auto) 0 10 ^3/uL (0-0.2) Nucleated Red Blood Cells 0.1 % Sodium Level 132 mmol/L (136-145) Potassium Level 4.1 mmol/L (3.5-5.1) Chloride Level 99 mmol/L (98-107) Carbon Dioxide Level 24 mmol/L (20-31) Anion Gap 9 (5-15) Blood Urea Nitrogen 49 mg/dL (9-23) Creatinine 4.31 mg/dL (0.550-1.02) Glomerular Filtration Rate Calc 11 mL/min (>90) BUN/Creatinine Ratio 11.4 (10.0-20.0) Serum Glucose 321 mg/dL (74-106) Hemoglobin A1c > 14.0 % A1C (<5.7) Calcium Level 8.8 mg/dL (8.7-10.4) Phosphorus Level 5.1 mg/dL (2.4-5.1) Magnesium Level 2.1 mg/dL (1.6-2.6) Vitamin D 25-Hydroxy 18.1 ng/mL (30.0-100) Thyroid Stimulating Hormone (TSH) 1.68 uIU/mL (0.55-4.78) Parathyroid Hormone (Intact) 131.6 pg/mL (18.4-80.1) Hepatitis B Surface Antigen Negative (Negative) Hepatitis C Antibody Negative (Negative) Influenza Type A Antigen Negative (Negative) Influenza Type B Antigen Negative (Negative) SARS-CoV-2 Antigen (Rapid) Negative (NEGATIVE) Test 10/25/25 21:39 10/25/25 19:37 10/25/25 18:43 Troponin I High Sensitivity 14 ng/L (</=34) Total Bilirubin 0.3 mg/dL (0.2-1.0) Direct Bilirubin 0.1 mg/dL (<0.3) Aspartate Amino Transferase (AST) 15 U/L (13-40) Alanine Aminotransferase (ALT) 17 U/L (7-40) Alkaline Phosphatase 111 U/L (46-116) Total Protein 6.8 g/dL (5.7-8.2) Albumin 3.6 g/dL (3.2-4.8) Beta-Hydroxybutyric Acid 0.893 mmol/L (< 0.4) Prothrombin Time 10.0 sec (9.3-11.8) Prothrombin Time INR 0.94 (0.9-1.15) Activated Partial Thromboplast Time 28.4 SEC (24.5-34.5) Serum Osmolality 299 mOsm/kg (278-298) B-Type Natriuretic Peptide 36.36 pg/mL (0-100) Lipase 50 U/L (12-53) Other Laboratory Tests 10/26/25 05:17 Brief Hx & Hospital Course: History of Present Illness This is a 55-year-old female with past medical history of Afib, s/p CABG, CHF, hypertension, uncontrolled type 2 diabetes mellitus, CKD presented to the ED with a chief complaint of chest pain, chills and generalized weakness since Friday prior to this admission. The patient states that since Friday she started feeling chest pain on deep breathing which is localized central in the chest, 5/10 and associated with chills and nausea. She also complaint of increased frequency of urination, nocturia, dry mouth and generalized weakness for the same duration. She checked blood sugar in the home which was in the range of fasting more than 260 mg/dl and denies any missed dose of insulin. She is following with data operations leader in [place], currently on stage 5 CKD and Discussing about the options of dialysis. She denies fever, shortness of breath, diaphoresis, abdominal pain, vomiting, dysuria or any change in bowel habit. Course of Hospitalization: Patient's blood sugars were controlled with IV hydration, long-acting insulin as well as regular insulin sliding scale. Nephrology consultation was obtained regarding patient's CKD stage 4. At this time the patient wishes to see her data operations leader at [facility] before moving forward with hemodialysis. Patient's symptoms have resolved. Patient will be discharged home as instructed to follow up with her PCP at next available appointment. It was also noted that the patient's hemoglobin A1c is greater than 14, for which education was given to adhere to a diabetic diet as well as her antidiabetic medications. Patient verbalized understanding. All questions answered to the patient and the patient's has been. Physical examination General: Alert and Oriented x3. No acute distress. Well-nourished. Obese Eyes: EOMI. Anicteric. HENT: Moist mucous membranes. Lungs: Clear to auscultation bilaterally. No accessory muscle use. Cardiovascular: Regular rate and rhythm. No murmur. No JVD. Abdomen: Soft, non-tender and non-distended. No palpable masses. Extremities: No edema. Non-tender. Skin: No rashes or lesions. Warm. Neurologic: No focal neurological deficits. CN II-XII grossly intact, but not individually tested. Psychiatric: Cooperative. Appropriate mood and affect. Total time spent with patient discussing and formulating plan of care: 35 minutes. This medical document was created using an electronic medical record system with [employer] dictation system. Although this document has been carefully reviewed, there may still be some phonetic and typographical errors. These areas are purely typographical due to imperfections of the software programs, and do not reflect any compromise in the patient's medical care. Condition at Discharge: Guarded Final Diagnosis/Problems List -diabetic ketoacidosis -diabetes mellitus, uncontrolled with A1c greater than 14 -obesity -paroxysmal atrial fibrillation -primary hypertension -CKD stage 5 -coronary artery disease with previous CABG -acute on chronic systolic heart failure Discharge Disposition: Home Discharge Instruct/Medications Diet: Consistent carbohydrate, Cardiac 2g Na,low cholest Activity: No Restrictions, As Tolerated Follow Up/Referral: PCP in 1-2 weeks Medications: Continue all home medications Scheduled Amlodipine Besylate (Norvasc Tablet), 1 TAB PO DAILY, (Reported) Apixaban Base (Eliquis), 5 MG PO BID, (Reported) Atorvastatin Calcium (Lipitor), 40 MG PO DAILY, (Reported) Carvedilol (Carvedilol), 1 TAB PO BID, (Reported) Empagliflozin (Jardiance), 12.5 MG PO DAILY, (Reported) Pregabalin (Lyrica), 25 MG PO BID, (Reported) Solifenacin Succinate (Solifenacin Succinate), 5 MG PO DAILY, (Reported) 36 Discharge Statement: "Patient was advised to return to the ER or call 911 if any headaches, dizziness, shortness of breath, chest pain, abdominal pain, bleeding, fevers, or worsening of medical condition. Patient was counseled about treatment plan, medications, possible side effects, patientverbalized understanding. All questions were answered to the best of my ability. This discharge took greater then 30 minutes in planning, reviewing documentation, counseling the patient, and discussing with other team members." ASSESSMENT ASSESSMENT Assessment DKA Date of Service: Oct 27, 2025 Billing Provider: YRIS GUADALUPE NP Common Visit Codes: 72955-XSZ/OBS DISCH DAY >30min YRIS GUADALUPE NP Oct 27, 2025 15:08
[2025-10-27 15:42] VITALS: BP 119/66
--- NOTE | 2025-10-27 16:56 | DVHSR ---
APPROVED REPORT EXAM: LIMITED Two-dimensional and M-mode echocardiogram with Doppler and color Doppler. Blood Pressure: 131/69 mmHg INDICATION Dyspnea Heart Failure SOB RISK FACTORS Obesity: Height: 5' 5", Weight: 253 DIMENSIONS LVDd 4.3 (3.8-5.7cm) LA (2D) 4.1 (1.9-4.0cm) Aortic Root 3.4 (2.0-3.7cm) LVDs 3.0 (2.5-4.0cm) LA (MM) (1.9-4.0cm) Aortic Cusp Exc 1.8 (1.5-2.0cm) EF (%) 57.0 (55-70%) Rt. Atrium 4.1 (1.9-4.0cm) Asc. Aorta cm IVSd 1.5 (0.7-1.1cm) RV (D) (1.8-2.4cm) PWd 1.5 (0.7-1.1cm) Mitral Valve Mitral Mitral Stenosis E wave 0.70m/s MV Mean GR. mmHg A wave 0.90m/s MV Peak GR. mmHg E/A ratio 0.8 2D MVA cm2 Aortic Valve Aortic Valve Aortic Stenosis V1 1.00m/s AO Mean GR. 4mmHg V2 2.30m/s AO Peak GR. 24mmHg LVOT Diameter 2.5 (1.8-2.4cm) Doppler TITO 2.13cm2 Pulmonic Valve V2 0.60m/s Tricuspid Valve TR Velocity 2.10m/s RVSP 22mmHg Other Information Quality : Technically Limited Rhythm : Technically limited study due to body habitus. Conclusion Technically difficult study with poor cardiac visualization LVEF normal at 55-60%, moderate LVH. Severe diastolic dysfunction Right ventricle size and function likely normal Mild left atrial dilation Aortic valve not well visualized mild stenosis by gradient
== END 2025-10-27 16:23 | disposition home or self-care (01) | DRG 194 ==
LOC: ER 18:10 → OVERFLOW 21:06 → TELE-CENTR 23:58
PROVIDERS: ADMIT Nurse Practitioner Acute Care; ATTEND Nurse Practitioner Acute Care
DX: I13.2 Hypertensive heart and chronic kidney disease with heart failure and with stage 5 chronic kidney disease, or end stage renal disease (principal); N18.5 Chronic kidney disease, stage 5; Z95.1 Presence of aortocoronary bypass graft; D63.1 Anemia in chronic kidney disease; N17.9 Acute kidney failure, unspecified; I50.23 Acute on chronic systolic (congestive) heart failure; E11.22 Type 2 diabetes mellitus with diabetic chronic kidney disease; E66.9 Obesity, unspecified; Z20.822 Contact with and (suspected) exposure to COVID-19; I48.0 Paroxysmal atrial fibrillation; D68.59 Other primary thrombophilia; I25.10 Atherosclerotic heart disease of native coronary artery without angina pectoris; Z86.73 Personal history of transient ischemic attack (TIA), and cerebral infarction without residual deficits; Z68.41 Body mass index [BMI] 40.0-44.9, adult
CPT/HCPCS: 36415; 71045; 72170; 76775; 80048; 80076; 81001; 82010; 82306; 82570; 82962; 83036; 83690; 83735; 83880; 83930; 83970; 84100; 84156; 84300; 84443; 84484; 85025; 85610; 85730; 86803; 87086; 87340; 87426; 87804; 93005; 93306; 93970; 96361; 96372; 96374; 99291; G0378; J1815